=== PATIENT | female | born 1930 | race Caucasian/White ===

== ENCOUNTER 2016-10-23 19:23 | Inpatient (IN) | payer MEDICARE ==
[~2016-10-23] VITALS: Ht 160 cm; Wt 75.0 kg
[~2016-10-23 19:23] MED LIST: CALC600T44 PO; LISI10TA PO; LOVA1TAB47 PO
[2016-10-23 19:25] VITALS: BP 211/86; PULSE 104; RESP 16; TEMP 98.7; O2SAT 98
--- NOTE | 2016-10-23 20:24 | PD ---
HPI Chief Complaint: Abdominal Pain Time Seen by Provider: 20:24 Travel History International Travel<30 days: No Contact w/Intl Traveler<30days: No Traveled to known affect area: No History of Present Illness HPI 86-year-old female presents the emergency department with sudden onset upper abdominal discomfort approximately 2 PM this afternoon. Patient states a history of diverticulitis as well as gallstones, with removal of her gallstone the past, years ago, but then she had a secondary stone in the biliary tract afterwards. This was some years ago as well. Patient states she ate lunch approximately 12:00 this afternoon and then her pain started to. She describes it as a sharp crampy pain is waxing and waning, but describes it as an 8 out of 10. She states no fever or chills but has nausea without vomiting. She denies urinary symptoms or diarrhea. No history of constipation in recent days. She denies chest pain or shortness of breath. No pain in the neck or back. She is allergic to penicillin and sulfa. PFSH Past Medical History Hx Anticoagulant Therapy: No Arthritis: Yes Asthma: No Blood Disorders: No Heart Rhythm Problems: No Cancer: No Cardiovascular Problems: No High Cholesterol: Yes Chemotherapy: No Chest Pain: No Congestive Heart Failure: No COPD: No Cerebrovascular Accident: No Diabetes: Yes ([place]) Diminished Hearing: Yes ([place]) Endocrine: Yes GERD: No Glaucoma: No Genitourinary: No Hypertension: Yes Immune Disorder: No Musculoskeletal: Yes (OSTEOPOROSIS) Neurologic: Yes Psychiatric: No Reproductive: No Respiratory: No Myocardial Infarction: No Seizures: No Sleep Apnea: No Ulcer: No Menopausal: Yes Past Surgical History Abdominal Surgery: Yes (CHOLECYSTECTOMY) AICD: No Arteriovenous Shunt: No Cardiac Surgery: No Cholecystectomy: Yes Ear Surgery: No Endocrine Surgery: No Eye Surgery: No Genitourinary Surgery: No Gynecologic Surgery: No Hysterectomy: No Insulin Pump: No Joint Replacement: Yes (RTH) Oral Surgery: No Pacemaker: No Thoracic Surgery: No Social History Alcohol Use: Yes (1-2 MO) Tobacco Use: No Substance Use: No Allergies-Medications (Allergen,Severity, Reaction): Coded Allergies: Penicillin (Verified Allergy, Severe, Hives, 10/23/16) Sulfa (Verified Allergy, Severe, Hives, 10/23/16) Reported Meds & Prescriptions Reported Meds & Active Scripts Active Reported Calcium (Calcium Carbonate) 600 Mg Tab 600 Mg PO DAILY Lovastatin 20 Mg Tab 20 Mg PO Lisinopril/Hctz 20 mg/12.5 mg 20 mg/12.5 mg Tab 1 Tab PO DAILY Review of Systems Except as stated in HPI: all other systems reviewed are Neg General / Constitutional: No: Fever Eyes: No: Visual changes HENT: No: Headaches Cardiovascular: No: Chest Pain or Discomfort Respiratory: No: Shortness of Breath Gastrointestinal: Positive: Nausea, Abdominal Pain, Loss of Appetite, No: Vomiting, Diarrhea, Hematemesis, Hematochezia, Constipation, Dysphagia Genitourinary: No: Urgency, Frequency, Dysuria Musculoskeletal: No: Pain Skin: No Rash Neurologic: No: Weakness Psychiatric: No: Depression Endocrine: No: Polydipsia Hematologic/Lymphatic: No: Easy Bruising Physical Exam Narrative GENERAL: Patient appears in mild distress. SKIN: Warm and dry. Normal color. Normal turgor. No icterus. HEAD: Atraumatic. Normocephalic. EYES: Pupils equal and round. No scleral icterus. No injection or drainage. ENT: No nasal bleeding or discharge. Mucous membranes pink and moist. Pharynx is clear. Airway is patent. NECK: Trachea midline. Supple and nontender. CARDIOVASCULAR: Regular rate and rhythm. No murmurs gallops or rubs appreciated. RESPIRATORY: No accessory muscle use. Clear to auscultation. Breath sounds equal bilaterally. GASTROINTESTINAL: Abdomen soft, moderate central epigastric tenderness, nondistended. No point tenderness or rebound. No CVA tenderness. Hepatic and splenic margins not palpable. MUSCULOSKELETAL: Extremities without clubbing, cyanosis, or edema. No obvious deformities. NEUROLOGICAL: Awake and alert. No obvious cranial nerve deficits. Motor grossly within normal limits. Five out of 5 muscle strength in the arms and legs. Normal speech. PSYCHIATRIC: Appropriate mood and affect; insight and judgment normal. Data Data Last Documented VS Vital Signs Date Time Temp Pulse Resp B/P Pulse Ox O2 Delivery O2 Flow Rate FiO2 10/23/16 22:24 112 20 182/74 95 Nasal Cannula 10/23/16 21:59 2 10/23/16 19:25 98.7 Orders Complete Blood Count With Diff (10/23/16 20:32) Comprehensive Metabolic Panel (10/23/16 20:32) Lipase (10/23/16 20:32) Lactic Acid (10/23/16 20:32) Prothrombin Time / Inr (Pt) (10/23/16 20:32) Act Partial Throm Time (Ptt) (10/23/16 20:32) Urinalysis - C+S If Indicated (10/23/16 20:32) Ct Abd/Pel W Iv Contrast(Rout) (10/23/16 20:32) Iv Access Insert/Monitor (10/23/16 20:32) Ecg Monitoring (10/23/16 20:32) Oximetry (10/23/16 20:32) NPO (10/23/16 20:32) Morphine Inj (Morphine Inj) (10/23/16 20:45) Ondansetron Inj (Zofran Inj) (10/23/16 20:45) Sodium Chloride 0.9% Flush (Ns Flush) (10/23/16 20:45) Electrocardiogram (10/23/16 20:32) Al-Mag Hy-Si 40-40-4 Mg/Ml Liq (Mag-Al P (10/23/16 20:45) Lidocaine 2% Viscous (Xylocaine 2% Visco (10/23/16 20:45) Chest, Single Ap (10/23/16 20:35) Vancomycin Inj (Vancomycin Inj) (10/23/16 22:40) Aztreonam Inj (Azactam Inj) (10/23/16 22:40) Metronidazole 500 Mg Inj (Flagyl 500 Mg (10/23/16 22:40) Sodium Chlorid 0.9% 500 Ml Inj (Ns 500 M (10/23/16 22:45) Labs Laboratory Tests Test 10/23/16 21:20 White Blood Count 15.7 TH/MM3 Red Blood Count 4.68 MIL/MM3 Hemoglobin 13.9 GM/DL Hematocrit 41.4 % Mean Corpuscular Volume 88.5 FL Mean Corpuscular Hemoglobin 29.8 PG Mean Corpuscular Hemoglobin 33.7 % Concent Red Cell Distribution Width 13.2 % Platelet Count 256 TH/MM3 Mean Platelet Volume 9.4 FL Neutrophils (%) (Auto) 87.4 % Lymphocytes (%) (Auto) 6.1 % Monocytes (%) (Auto) 6.1 % Eosinophils (%) (Auto) 0.3 % Basophils (%) (Auto) 0.1 % Neutrophils # (Auto) 13.8 TH/MM3 Lymphocytes # (Auto) 1.0 TH/MM3 Monocytes # (Auto) 1.0 TH/MM3 Eosinophils # (Auto) 0.0 TH/MM3 Basophils # (Auto) 0.0 TH/MM3 CBC Comment DIFF FINAL Differential Comment Prothrombin Time 10.6 SEC Prothromb Time International 1.0 RATIO Ratio Activated Partial 23.2 SEC Thromboplast Time Sodium Level 135 MEQ/L Potassium Level 4.1 MEQ/L Chloride Level 99 MEQ/L Carbon Dioxide Level 26.2 MEQ/L Anion Gap 10 MEQ/L Blood Urea Nitrogen 20 MG/DL Creatinine 1.12 MG/DL Estimat Glomerular Filtration 46 ML/MIN Rate Random Glucose 163 MG/DL Lactic Acid Level 3.0 mmol/L Calcium Level 9.8 MG/DL Total Bilirubin 2.8 MG/DL Aspartate Amino Transf 346 U/L (AST/SGOT) Alanine Aminotransferase 278 U/L (ALT/SGPT) Alkaline Phosphatase 108 U/L Total Protein 7.1 GM/DL Albumin 3.5 GM/DL Lipase 276 U/L [facility] Medical Decision Making Medical Screen Exam Complete: Yes Emergency Medical Condition: Yes Medical Record Reviewed: Yes Differential Diagnosis Abdominal pain. Diverticulitis. Biliary disease. Gastroenteritis. Ulcer. Urinary tract infection. Narrative Course Patient is medically stable at time of exam. Labs ordered including CBC, CMP, PT PTT and INR, lactic acid, lipase, urinalysis. EKG is ordered as well as abdominal CT scan with IV contrast. IV access is obtained patient is given 4 mg Zofran IV as well as 4 mg morphine IV, as well as GI cocktail by mouth. CBC shows leukocytosis of 15.7, 87.4% neutrophils Chemistry shows sodium 135, BUN of 20, creatinine 1.12, random glucose of 163, lactic acid is significantly elevated at 3.0, total bilirubin is 2.8, AST is 346 , ALT is 278, lipase is 276 Coag studies are unremarkable. Patient is discussed with Dr. Kennedy, and antibiotics ordered including 2000 mg Aztreonam IV, metronidazole 500 mg IV, vancomycin thousand milligrams IV. Patient appears stable at [address] scan is still pending. Urinalysis is pending. 2300 hrs. care of the patient is turned over to Dr. Kennedy will determine her plan and disposition based on the CT. Condition: Stable Drew Rivas Oct 23, 2016 20:24 Condition: Stable Drew Rivas Oct 23, 2016 20:24
[2016-10-23] MEDS ORDERED: SODIUM CHLORIDE 0.9% FLUSH 10 ML FLUSH IV FLUSH PRN (20:45)
[2016-10-23] MEDS ORDERED: ONDANSETRON HCL 4 MG/2 ML VIAL IVP ONE (20:45)
[2016-10-23] MEDS ORDERED: MORPHINE SULFATE 4 MG/ML INJ IV PUSH ONE (20:45)
[2016-10-23] MEDS ORDERED: ALUMINUM/MAGNESIUM/SIMETH 30 ML CUP PO ONE (20:45)
[2016-10-23] MEDS ORDERED: LIDOCAINE VISCOUS 2% SOLN 15 ML UDC PO ONE (20:45)
--- NOTE | 2016-10-23 21:41 | RADRPT ---
EXAM DATE/TIME: 10/23/2016 21:09 [facility] COMPARISON: No previous studies available for comparison. INDICATIONS : Bilateral upper abdomen pain and lower chest pain. MEDICAL HISTORY : Hypertension. Diabetes mellitus type II. SURGICAL HISTORY : Cholecystectomy. ENCOUNTER: Initial ACUITY: 1 day PAIN SCORE: 7/10 LOCATION: Bilateral upper chest FINDINGS: A single view of the chest demonstrates the lungs to be symmetrically aerated without evidence of mas s, infiltrate or effusion. The cardiomediastinal contours are unremarkable. Osseous structures are intact. CONCLUSION: No evidence of acute cardiopulmonary disease. Wali Brown MD on October 23, 2016 at 21:39 Board Certified Radiologist. This report was verified electronically.
[2016-10-23 21:59] VITALS: BP 167/70; PULSE 113; RESP 20; O2SAT 94
[2016-10-23 21:59] LABS: AUTOMATED NEUTROPHIL # 13.8 TH/MM3 (1.8-7.7); BASOPHIL % 0.1 % (0.0-2.0); EOSINOPHIL % 0.3 % (0.0-4.0); HEMATOCRIT 41.4 % (35.0-46.0); HEMO FLAGS DIFF FINAL; LYMPH % 6.1 % (9.0-44.0); MEAN CELL VOLUME 88.5 FL (80.0-100.0); MEAN CORPUSCULAR HEMOGLOBIN 29.8 PG (27.0-34.0); MEAN CORPUSCULAR HGB CONC 33.7 % (32.0-36.0); MONO % 6.1 % (0.0-8.0); NEUT % 87.4 % (16.0-70.0); PLATELET COUNT 256 TH/MM3 (150-450); RED BLOOD COUNT 4.68 MIL/MM3 (4.00-5.30); RED CELL DISTRIBUTION WIDTH 13.2 % (11.6-17.2); WHITE BLOOD COUNT 15.7 TH/MM3 (4.0-11.0)
[2016-10-23 22:13] LABS: APTT (PATIENT) 23.2 SEC (24.3-30.1); PROTHROMBIN TIME - PATIENT 10.6 SEC (9.8-11.6)
[2016-10-23 22:15] LABS: ALT (GPT) 278 U/L (10-53)
[2016-10-23 22:16] LABS: ALKALINE PHOSPHATASE 108 U/L (45-117); TOTAL BILIRUBIN ADULT 2.8 MG/DL (0.2-1.0)
[2016-10-23 22:22] LABS: ANION GAP 10 MEQ/L (5-15); AST (GOT) 346 U/L (15-37); BICARBONATE 26.2 MEQ/L (21.0-32.0); BLOOD UREA NITROGEN 20 MG/DL (7-18); CHLORIDE 99 MEQ/L (98-107); GLOMERULAR FILTRATION RATE 46 ML/MIN (>89); POTASSIUM 4.1 MEQ/L (3.5-5.1); SODIUM (NA) 135 MEQ/L (136-145)
[2016-10-23 22:24] VITALS: BP 182/74; PULSE 112; RESP 20; O2SAT 95
[2016-10-23] MEDS ORDERED: metroNIDAZOLE 500 MG INJ 100 ML IV STA (22:40)
[2016-10-23] MEDS ORDERED: VANCOMYCIN INJ 1,000 MG in SODIUM CHLOR 0.9% 250 ML INJ 250 ML IV STA (22:40)
[2016-10-23] MEDS ORDERED: AZTREONAM INJ 2,000 MG in SODIUM CHLORIDE 0.9% INJ 100 ML IV STA (22:40)
[2016-10-23] MEDS ORDERED: SODIUM CHLORID 0.9% 500 ML INJ 500 ML IV ONE (22:45)
[2016-10-23] MEDS ORDERED: IRON PO (23:07)
[2016-10-23] MEDS ORDERED: CALCIUM PO (23:07)
[2016-10-23] MEDS ORDERED: METO25TA3 PO (23:07)
[2016-10-23] MEDS ORDERED: WOMETAB2 PO (23:07)
[2016-10-23] MEDS ORDERED: METF500T PO (23:09)
[2016-10-23] MEDS ORDERED: LOVA20TA PO (23:09)
[2016-10-23] MEDS ORDERED: LISI-587 PO (23:09)
--- NOTE | 2016-10-23 23:37 | PD ---
Data Data Last Documented VS Vital Signs Date Time Temp Pulse Resp B/P Pulse Ox O2 Delivery O2 Flow Rate FiO2 10/24/16 00:38 20 10/23/16 22:24 112 182/74 95 Nasal Cannula 10/23/16 21:59 2 10/23/16 19:25 98.7 Orders Complete Blood Count With Diff (10/23/16 20:32) Comprehensive Metabolic Panel (10/23/16 20:32) Lipase (10/23/16 20:32) Lactic Acid (10/23/16 20:32) Prothrombin Time / Inr (Pt) (10/23/16 20:32) Act Partial Throm Time (Ptt) (10/23/16 20:32) Urinalysis - C+S If Indicated (10/23/16 20:32) Ct Abd/Pel W Iv Contrast(Rout) (10/23/16 20:32) Iv Access Insert/Monitor (10/23/16 20:32) Ecg Monitoring (10/23/16 20:32) Oximetry (10/23/16 20:32) NPO (10/23/16 20:32) Morphine Inj (Morphine Inj) (10/23/16 20:45) Ondansetron Inj (Zofran Inj) (10/23/16 20:45) Sodium Chloride 0.9% Flush (Ns Flush) (10/23/16 20:45) Electrocardiogram (10/23/16 20:32) Al-Mag Hy-Si 40-40-4 Mg/Ml Liq (Mag-Al P (10/23/16 20:45) Lidocaine 2% Viscous (Xylocaine 2% Visco (10/23/16 20:45) Chest, Single Ap (10/23/16 20:35) Vancomycin Inj (Vancomycin Inj) (10/23/16 22:40) Aztreonam Inj (Azactam Inj) (10/23/16 22:40) Metronidazole 500 Mg Inj (Flagyl 500 Mg (10/23/16 22:40) Sodium Chlorid 0.9% 500 Ml Inj (Ns 500 M (10/23/16 22:45) Blood Culture (10/23/16 22:50) Lactic Acid Sepsis Protocol (10/23/16 22:50) Iohexol 350 Inj (Omnipaque 350 Inj) (10/23/16 23:49) Admit Order (Ed Use Only) (10/24/16 00:46) Consult Gastroenterology (10/24/16 ) Labs Laboratory Tests Test 10/23/16 10/23/16 21:20 23:35 White Blood Count 15.7 TH/MM3 Red Blood Count 4.68 MIL/MM3 Hemoglobin 13.9 GM/DL Hematocrit 41.4 % Mean Corpuscular Volume 88.5 FL Mean Corpuscular Hemoglobin 29.8 PG Mean Corpuscular Hemoglobin 33.7 % Concent Red Cell Distribution Width 13.2 % Platelet Count 256 TH/MM3 Mean Platelet Volume 9.4 FL Neutrophils (%) (Auto) 87.4 % Lymphocytes (%) (Auto) 6.1 % Monocytes (%) (Auto) 6.1 % Eosinophils (%) (Auto) 0.3 % Basophils (%) (Auto) 0.1 % Neutrophils # (Auto) 13.8 TH/MM3 Lymphocytes # (Auto) 1.0 TH/MM3 Monocytes # (Auto) 1.0 TH/MM3 Eosinophils # (Auto) 0.0 TH/MM3 Basophils # (Auto) 0.0 TH/MM3 CBC Comment DIFF FINAL Differential Comment Prothrombin Time 10.6 SEC Prothromb Time International 1.0 RATIO Ratio Activated Partial 23.2 SEC Thromboplast Time Sodium Level 135 MEQ/L Potassium Level 4.1 MEQ/L Chloride Level 99 MEQ/L Carbon Dioxide Level 26.2 MEQ/L Anion Gap 10 MEQ/L Blood Urea Nitrogen 20 MG/DL Creatinine 1.12 MG/DL Estimat Glomerular Filtration 46 ML/MIN Rate Random Glucose 163 MG/DL Lactic Acid Level 3.0 mmol/L 2.2 mmol/L Calcium Level 9.8 MG/DL Total Bilirubin 2.8 MG/DL Aspartate Amino Transf 346 U/L (AST/SGOT) Alanine Aminotransferase 278 U/L (ALT/SGPT) Alkaline Phosphatase 108 U/L Total Protein 7.1 GM/DL Albumin 3.5 GM/DL Lipase 276 U/L [facility] Medical Record Reviewed: Yes Supervised Visit with MAULIK: No Interpretation(s) Last Impressions Chest X-Ray 10/23/[id number] Signed Impressions: Service Date/Time: Sunday, October 23, 2016 21:09 - CONCLUSION: No evidence of acute cardiopulmonary disease. Wali Brown MD Abdomen/Pelvis CT 10/23/[id number] Signed Impressions: Service Date/Time: Sunday, October 23, 2016 23:44 - CONCLUSION: The extra hepatic biliary tree is dilated status post cholecystectomy but there is very significant debris within the common bile duct worse than in May 2015. Kwesi Reyna MD Narrative Course During the course of the patients emergency department visit, the patients history, examination, and differential diagnosis were reviewed with the patient. The patient had IV access obtained and blood work sent for analysis. The patient's case was checked out to me by Drew, the physician clinical trials assistant. The patient is pending CT scan of the abdomen and pelvis results. Rechecked the case out to me at the conclusion of his shift. The patient is an 86-year- old female who presents to [facility] emergency department with a reported history of abdominal pain with nausea. The patient has a history of choledocholithiasis status post cholecystectomy. The patient was initially provided morphine for pain, Zofran for nausea. After the patient's white blood cell count came back elevated as well as her lactic acid was elevated the patient was covered with broad-spectrum antibiotic for possible sepsis of abdominal origin. The patient was given Azactam, Flagyl, vancomycin. The patient was started on gentle fluid resuscitation with normal saline a 500 mL bolus. The patient's lactate will be repeated. The patients laboratory studies were reviewed and remarkable for a CMP is remarkable for a sodium of 135, BUN 20, creatinine 1.12, glucose 163 with a total bilirubin of 2.8, AST 346, ALT 278, normal alkaline phosphatase at 108, lipase 276. Lactic acid level is elevated at 3. PT 10.6, INR 1.0, PTT 23.2. Radiology studies were reviewed and remarkable for a chest x-ray that shows no acute abnormality. CT scan of the abdomen and pelvis showed the extrahepatic biliary tree is dilated status post cholecystectomy but there is very significant debris within the common bile duct that is much worse compared to May 2015. The patient's case was discussed with the GI specialist salesperson surgical appliances, Dr. Tafoya, who did agree to see the patient in consultation. The patients results were discussed with the patient, including the plan of care. I explained that further testing and/ or monitoring is indicated based on the patients history, examination, and/ or laboratory findings. Therefore, I recommended admission for additional evaluation. The patient expressed understanding and was agreeable with this plan. The patient was admitted to the hospital in stable condition and sent to a bed under the care of the [facility] hospitalist group. Physician Communication Physician Communication I spoke to Dr. Tafoya, the frozen food department manager, at approximately 12:44 AM. He did agree to see the patient in consultation. The [facility] who did agree to admit the patient for further evaluation and treatment at this time. Diagnosis Primary Impression: Abdominal pain Qualified Code: R10.13 - Epigastric pain Additional Impressions: Elevated liver enzymes Choledocholithiasis Admitting Information Admitting Physician Requests: Admit Condition: Stable Audrey Kennedy MD Oct 23, 2016 23:37
[2016-10-23] MEDS ORDERED: IOHEXOL 350 MG/ML 10 ML VIAL (for RAD DIAG) IV ONE (23:49)
[2016-10-24] VITALS (9 sets, daily range): BP systolic 112–157; BP diastolic 54–68; PULSE 83–109; RESP 16–20; TEMP 97.2–98.6; O2SAT 90–99
--- NOTE | 2016-10-24 00:11 | RADRPT ---
EXAM DATE/TIME: 10/23/2016 23:44 [facility] COMPARISON: No previous studies available for comparison. INDICATIONS : Upper left quadrant abdominal pain. IV CONTRAST: 80 cc Omnipaque 350 (iohexol) IV ORAL CONTRAST: No oral contrast ingested. RADIATION DOSE: 15.13 CTDIvol (mGy) MEDICAL HISTORY : Hypertension. Diabetes mellitus type 2. Diverticulitis. SURGICAL HISTORY : Cholecystectomy. Right hip replacement. ENCOUNTER: Initial ACUITY: 1 day PAIN SCALE: 8/10 LOCATION: Left upper quadrant TECHNIQUE: Volumetric scanning of the abdomen and pelvis was performed. Using automated exposure control and ad justment of the mA and/or kV according to patient size, radiation dose was kept as low as reasonably achievable to obtain optimal diagnostic quality images. FINDINGS: LOWER LUNGS: The visualized lower lungs are clear. LIVER: Homogeneous density without lesion. There is moderate dilation of the biliary tree with extensive de bris in the distal common bile duct. Cholecystectomy clips. SPLEEN: Normal size without lesion. PANCREAS: Within normal limits. KIDNEYS: Normal in size and shape. There is no mass, stone or hydronephrosis. ADRENAL GLANDS: Within normal limits. VASCULAR: There is no aortic aneurysm. BOWEL/MESENTERY: The stomach, small bowel, and colon demonstrate no acute abnormality. There is no free intraperitone al air or fluid. Diverticulosis ABDOMINAL WALL: Within normal limits. RETROPERITONEUM: There is no lymphadenopathy. BLADDER: No wall thickening or mass. REPRODUCTIVE: Within normal limits. INGUINAL: There is no lymphadenopathy or hernia. MUSCULOSKELETAL: Within normal limits for patient age. CONCLUSION: The extra hepatic biliary tree is dilated status post cholecystectomy but there is very significant d ebris within the common bile duct worse than in May 2015. Kwesi Reyna MD on October 24, 2016 at 0:08 Board Certified Radiologist. This report was verified electronically.
[2016-10-24] MEDS: D5-1/2 NS + KCL 20 MEQ INJ 1,000 ML IV SCH ×2 (00:48→14:08)
[2016-10-24] MEDS ORDERED: SODIUM CHLORIDE 0.9% FLUSH 10 ML FLUSH IV FLUSH PRN (01:00)
[2016-10-24] MEDS ORDERED: ONDANSETRON HCL 4 MG/2 ML VIAL IVP PRN (01:00)
[2016-10-24] MEDS ORDERED: NALOXONE HCL 0.4 MG/ML AMP IV PRN (01:00)
[2016-10-24 01:43] LABS: LACTIC ACID GHOST NOT REPORTABLE
[2016-10-24 04:29] LABS: BLOOD, URINE NEG (NEG); COMMENT (UR) CULT NOT INDICATED; CULTURE IF INDICATED CULT NOT INDICATED; GLUCOSE,URINE NEG (NEG); HYALINE CAST, URINE 3 /lpf (RARE); KETONE, URINE NEG (NEG); MUCUS URINE FEW /lpf (OCC); NITRITE,URINE NEG (NEG); PH, URINE 6.5 (5.0-8.5); SQUAMOUS EPITHELIAL CELL URINE 2 /hpf (0-5); URINE COLOR YELLOW (YELLW/STRAW)
[2016-10-24] MEDS: metroNIDAZOLE 500 MG INJ 100 ML IV SCH ×3 (08:26→23:42)
[2016-10-24] MEDS: AZTREONAM INJ 1,000 MG in SODIUM CHLORIDE 0.9% INJ 100 ML IV SCH ×3 (08:26→23:41)
[2016-10-24] MEDS: SODIUM CHLORIDE 0.9% FLUSH 10 ML FLUSH IV FLUSH SCH ×2 (08:27→20:03)
[2016-10-24] MEDS: HEPARIN SODIUM - SQ 10,000 UNITS/ML VIAL SQ SCH ×2 (08:27→08:34)
--- NOTE | 2016-10-24 09:48 | HHI.HP ---
[facility] Jc Ridley MD Admission Diagnosis Choledocholithiaisis Diagnoses: Chief Complaint: Abdominal pain Travel History International Travel<30 Days: No Contact w/Intl Traveler <30 Da: No Traveled to Known Affected Are: No History of Present Illness This a pleasant 86-year-old elderly white female with significant past medical history of cholecystectomy in 2010, type 2 diabetes, hypertension. Patient presented to the emergency room with sudden onset of abdominal pain that started around 2 PM yesterday. Indicates the pain is cramping in nature, it is across the top of the abdomen, it comes and goes. Associated with nausea, no vomiting. 2 hours before she had had lunch, 1/2 an apple and half turkey & salami sandwich. Patient has a history of choledocholithiasis that required ERCP and stone removal in 2016. She denies any fever, no chills. No urinary symptoms. Bowel movements have been regular, no blood. No other symptoms such as chest pain, shortness of breath. Patient was evaluated in emergency room, CBC remarkable for leukocytosis, WBC 15.7. Lactic acid was elevated at 3, it is trending down. BMP remarkable for BUN of 20, creatinine 1.12. Elevated liver enzymes, AST 346, ALT 278. Mild hyponatremia, sodium 135. Urinalysis with small amount of leukocyte esterase, no culture indicated. Abdomen and pelvis CT significant for extrahepatic biliary tree dilation status post cholecystectomy, there is significant degree within the common bile duct worse than in May 2015. Patient was noted tachycardic, blood pressure stable. No fever. Cultures were obtained, patient was started on empiric antibiotics. Patient is currently nothing by mouth and waiting for GI consultation. Patient is admitted for further evaluation and treatment Review of Systems Constitutional: DENIES: Diaphoretic episodes, Fatigue, Fever, Weight gain, Weight loss, Chills, Dizziness, Change in appetite, Night Sweats Endocrine: DENIES: Abnorml menstrual pattern, Heat/cold intolerance, Polydipsia , Polyuria, Polyphagia Eyes: DENIES: Blurred vision, Diplopia, Eye inflammation, Eye pain, Vision loss , Photosensitivity, Double Vision Ears, nose, mouth, throat: DENIES: Tinnitus, Hearing loss, Vertigo, Nasal discharge, Oral lesions, Throat pain, Hoarseness, Ear Pain, Running Nose, Epistaxis, Sinus Pain, Toothache, Odynophagia Respiratory: DENIES: Apneas, Cough, Snoring, Wheezing, Hemoptysis, Sputum production, Shortness of breath Cardiovascular: DENIES: Chest pain, Palpitations, Syncope, Dyspnea on Exertion , PND, Lower Extremity Edema, Orthopnea, Claudication Gastrointestinal: COMPLAINS OF: Abdominal pain, Nausea Genitourinary: DENIES: Abnormal vaginal bleeding, Dysmenorrhea, Dyspareunia, Sexual dysfunction, Urinary frequency, Urinary incontinence, Urgency, Hematuria , Dysuria, Nocturia, Vaginal discharge Musculoskeletal: DENIES: Joint pain, Muscle aches, Stiffness, Joint Swelling, Back pain, Neck pain Integumentary: DENIES: Abnormal pigmentation, Pruritus, Rash, Nail changes, Breast masses, Breast skin changes, Nipple discharge Hematologic/lymphatic: DENIES: Bruising, Lymphadenopathy Immunologic/allergic: DENIES: Eczema, Urticaria Neurologic: DENIES: Abnormal gait, Headache, Localized weakness, Paresthesias, Seizures, Speech Problems, Tremor, Poor Balance Psychiatric: DENIES: Anxiety, Confusion, Mood changes, Depression, Hallucinations, Agitation, Suicidal Ideation, Homicidal Ideation, Delusions Past Family Social History Past Medical History 1. Hypertension 2. Diabetes 3. Arthritis 4. Hyperlipidemia 5. Admitted in 2016 for choledocholithiasis, had ERCP with stone extraction. Past Surgical History 1. History of hip replacement in 2005. 2. Cholecystectomy in 2010. 3. ERCP with stone extraction and dilation of bile duct on 05/24/2015 Reported Medications Reported Meds & Active Scripts Active Reported Metformin (Metformin HCl) 500 Mg Tab 500 Mg PO BIDPC With meals Zestoretic (Lisinopril-Hctz) 20-25 Mg Tab 1 Tab PO DAILY Lovastatin 20 Mg Tab 20 Mg PO HS [Calcium 600 +Iron] 1 Tab PO DAILY Womens Daily Formula (Multiple Vitamins W/ Minerals) 1 Tab Tab 1 Tab PO AC DINNER Metoprolol Tartrate 25 Mg Tab 25 Mg PO BID Allergies: Coded Allergies: Penicillin (Verified Allergy, Severe, Hives, 10/23/16) Sulfa (Verified Allergy, Severe, Hives, 10/23/16) Active Ordered Medications Inpatient Medications Al Hydrox/Mg Hydrox/Simethicone (Mag-Al Plus Susp Liq) 30 ml ONCE ONCE PO Last administered on 10/23/16t 20:45; Start 10/23/16 at 20:45; Stop 10/23/16 at 20: 46; Status DC Aztreonam 1000 mg/ Sodium Chloride 100 ml @ 200 mls/hr Q8H IV Last administered on 10/24/16 08:26; Start 10/24/16 at 08:00 Aztreonam 2000 mg/ Sodium Chloride 100 ml @ 200 mls/hr ONCE STAT IV Last administered on 10/23/16 22:40; Start 10/23/16 at 22:40; Stop 10/23/16 at 23:09; Status DC Heparin Sodium (Porcine) (Heparin Inj) 5,000 units Q12H SQ ; Start 10/24/16 at 09 :00 Hydromorphone HCl (Dilaudid Pf Inj) 0.5 mg Q4H PRN IV PUSH pain ; Start at 01:00 Lidocaine HCl 15 ml 15 ml ONCE ONCE PO Last administered on 10/23/16 20:45; Start 10/23/16 at 20:45; Stop 10/23/16 at 20:46; Status DC Metronidazole (Flagyl 500 Mg Inj) 100 ml @ 100 mls/hr Q8H IV Last administered on 10/24/16 08:26; Start 10/24/16 at 09:00 Morphine Sulfate (Morphine Inj) 4 mg ONCE ONCE IV PUSH Last administered on 20:45; Start 10/23/16 at 20:45; Stop 10/23/16 at 20:46; Status DC Naloxone HCl 0.4 mg 0.4 mg UNSCH PRN IV SEE LABEL COMMENTS; Start 10/24/16 at 01 :00 Ondansetron HCl (Zofran Inj) 4 mg Q6H PRN IVP NAUSEA OR VOMITING; Start at 01:00 Potassium Chloride/Dextrose/ Sod Cl (D5-1/2 NS + KCl 20 Meq Inj) 1,000 ml @ 75 mls/hr [id number] IV Last administered on 10/24/16 00:48; Start 10/24/16 at 00:48 Sodium Chloride (NS Flush) 2 ml BID IV FLUSH ; Start 10/24/16 at 09:00 Vancomycin HCl 1000 mg/Sodium Chloride 250 ml @ 250 mls/hr Q12H IV ; Start 10/24 at 13:00 Family History Reviewed, noncontributory Social History Patient is a , lives with one of her daughters. Does not smoke, does not drink, no substance abuse. Physical Exam Vital Signs Vital Signs Date Time Temp Pulse Resp B/P Pulse Ox O2 Delivery O2 Flow Rate FiO2 10/24/16 08:00 97.5 98 16 125/56 96 10/24/16 07:59 Nasal Cannula 2.00 10/24/16 04:58 95 Nasal Cannula 2.00 10/24/16 04:00 98.6 104 18 117/59 99 10/24/16 03:42 106 20 117/54 96 10/24/16 01:00 102 20 154/68 96 10/24/16 00:38 20 10/23/16 22:24 112 20 182/74 95 Nasal Cannula 10/23/16 21:59 113 20 167/70 94 Nasal Cannula 2 10/23/16 20:42 20 10/23/16 19:25 98.7 104 16 211/86 98 Room Air Physical Exam GENERAL: This is a well-nourished, well-developed patient, in no apparent distress. SKIN: No rashes, ecchymoses or lesions. Cool and dry. HEAD: Atraumatic. Normocephalic. No temporal or scalp tenderness. EYES: Pupils equal round and reactive. Extraocular motions intact. No scleral icterus. No injection or drainage. ENT: Nose without bleeding, purulent drainage or septal hematoma. Throat without erythema, tonsillar hypertrophy or exudate. Uvula midline. Airway patent. NECK: Trachea midline. No JVD or lymphadenopathy. Supple, nontender, no meningeal signs. CARDIOVASCULAR: Regular rate and rhythm without murmurs, gallops, or rubs. RESPIRATORY: Clear to auscultation. Breath sounds equal bilaterally. No wheezes , rales, or rhonchi. GASTROINTESTINAL: Abdomen soft, tender over epigastric area, nondistended. No hepato-splenomegaly, or palpable masses. No guarding. MUSCULOSKELETAL: Extremities without clubbing, cyanosis, or edema. No joint tenderness, effusion, or edema noted. No calf tenderness. Negative Homans sign bilaterally. NEUROLOGICAL: Awake and alert. Cranial nerves II through XII intact. Motor and sensory grossly within normal limits. Five out of 5 muscle strength in all muscle groups. Normal speech. Laboratory Laboratory Tests Test 6/5/10/23/16 10/24/16 10/24/16 21:20 23:35 03:10 04:00 White Blood Count 15.7 Red Blood Count 4.68 Hemoglobin 13.9 Hematocrit 41.4 Mean Corpuscular Volume 88.5 Mean Corpuscular Hemoglobin 29.8 Mean Corpuscular Hemoglobin 33.7 Concent Red Cell Distribution Width 13.2 Platelet Count 256 Mean Platelet Volume 9.4 Neutrophils (%) (Auto) 87.4 Lymphocytes (%) (Auto) 6.1 Monocytes (%) (Auto) 6.1 Eosinophils (%) (Auto) 0.3 Basophils (%) (Auto) 0.1 Neutrophils # (Auto) 13.8 Lymphocytes # (Auto) 1.0 Monocytes # (Auto) 1.0 Eosinophils # (Auto) 0.0 Basophils # (Auto) 0.0 CBC Comment DIFF FINAL Differential Comment Prothrombin Time 10.6 Prothromb Time International 1.0 Ratio Activated Partial 23.2 Thromboplast Time Sodium Level 135 Potassium Level 4.1 Chloride Level 99 Carbon Dioxide Level 26.2 Anion Gap 10 Blood Urea Nitrogen 20 Creatinine 1.12 Estimat Glomerular Filtration 46 Rate Random Glucose 163 Lactic Acid Level 3.0 2.2 2.5 Calcium Level 9.8 Total Bilirubin 2.8 Aspartate Amino Transf 346 (AST/SGOT) Alanine Aminotransferase 278 (ALT/SGPT) Alkaline Phosphatase 108 Total Protein 7.1 Albumin 3.5 Lipase 276 Urine Color YELLOW Urine Turbidity CLEAR Urine pH 6.5 Urine Specific [place] GREATER THAN 1.050 Urine Protein TRACE Urine Glucose (UA) NEG Urine Ketones NEG Urine Occult Blood NEG Urine Nitrite NEG Urine Bilirubin NEG Urine Urobilinogen 2.0 Urine Leukocyte Esterase SMALL Urine RBC 3 Urine WBC 8 Urine Squamous Epithelial 2 Cells Urine Hyaline Casts 3 Urine Mucus FEW Microscopic Urinalysis Comment CULT NOT INDICATED Date/Time Procedure Status Source Growth 10/23/16 23:55 Aerobic Blood Culture Received Blood Peripheral Pending 10/23/16 23:55 Anaerobic Blood Culture Received Blood Peripheral Pending Result Diagram: 10/23/16211910/23/162119 Imaging Last Impressions Chest X-Ray 10/23/162034 Signed Impressions: Service Date/Time: Sunday, October 23, 2016 21:09 - CONCLUSION: No evidence of acute cardiopulmonary disease. Wali Brown MD Abdomen/Pelvis CT 10/23/162031 Signed Impressions: Service Date/Time: Sunday, October 23, 2016 23:44 - CONCLUSION: The extra hepatic biliary tree is dilated status post cholecystectomy but there is very significant debris within the common bile duct worse than in May 2015. Kwesi Reyna MD Assessment and Plan Problem List: (1) Abdominal pain (2) Choledocholithiasis (3) DM (diabetes mellitus) (4) Leukocytosis (5) Hyperlipidemia (6) Elevated liver enzymes (7) Lactic acid acidosis (8) JAIRO (acute kidney injury) Assessment and Plan Admit to Dr. Niño 86-year-old elderly female with history of cholecystectomy in 2010 and choledocholithiasis with ERCP and stone extraction in 2016. Admitted with cramping abdominal pain associated with nausea. Has elevated liver enzymes. 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 Positive for leukocytosis and lactic acidosis, SIRS. -Keep nothing by mouth Continue with cautious hydration Gastroenterology has been consulted. -Continue with empiric antibiotics, follow cultures Follow CBC and lactic acid -Follow LFTs in the morning Acute kidney injury Continue with IV fluids Follow BMP Type 2 diabetes Accu-Cheks before meals and at bedtime with insulin therapy Hypertension, stable Continue home medications SCDs and heparin subcutaneous for DVT prophylaxis Repeat laboratory workup in the morning Plan of care discussed with the patient, attending and registered nurse. Further management of the patient will be dependent on hospital course Patient was seen by myself and Dr. Niño, this H&P is written on her behalf Physician Certification 2 Midnight Certification Type: Admission for Inpatient Services Order for Inpatient Services The services are ordered in accordance with Medicare regulations or non- Medicare payer requirements, as applicable. In the case of services not specified as inpatient-only, they are appropriately provided as inpatient services in accordance with the 2-midnight benchmark. Estimated LOS (days): 2 2 days is the estimated time the patient will need to remain in the hospital, assuming treatment plan goals are met and no additional complications. Post-Hospital Plan: Home Problem Qualifiers (1) Abdominal pain: Qualified Code: R10.13 - Epigastric pain (2) DM (diabetes mellitus): Qualified Code: E11.9 - Type 2 diabetes mellitus without complication, without long-term current use of insulin (3) Leukocytosis: Qualified Code: D72.829 - Leukocytosis, unspecified type (4) Hyperlipidemia: Qualified Code: E78.5 - Hyperlipidemia, unspecified hyperlipidemia type Kimberlyn Benitez Oct 24, 2016 09:48
[2016-10-24] MEDS ORDERED: GLUCAGON 1 MG/ML VIAL OTHER PRN (10:00)
[2016-10-24] MEDS ORDERED: DEXTROSE 50% IN WATER 50 ML VIAL(D50) IV PRN (10:00)
[2016-10-24] MEDS: INSULIN ASPART SUPPLEMENTAL SCALE SQ SCH ×3 (11:00→21:00)
[2016-10-24] MEDS: VANCOMYCIN INJ 1,000 MG in SODIUM CHLOR 0.9% 250 ML INJ 250 ML IV SCH ×2 (11:32→23:43)
--- NOTE | 2016-10-24 15:20 | PD.CONS ---
HPI History of Present Illness This is a 86 year old lady who presended to the ER last night for "stomach pains " and nausea. Onset was yesterday, mid epigastric pain that became diffuse. No aggravating or relieving factors. She has experienced this before, 05/2015 and was found to have choledocholithiasis and had ERCP and stone extraction. Says her urine has been dark the last few days. Denies jaundice, vomiting, diarrhea. Denies ETOH. (Vida Guy) PFSH Past Medical History HTN DMII hx choledocholithiasis (Vida Guy) Coded Allergies: Penicillin (Verified Allergy, Severe, Hives, 10/23/16) Sulfa (Verified Allergy, Severe, Hives, 10/23/16) Review of Systems Constitutional: DENIES: Fever Eyes: DENIES: Blurred vision Ears, nose, mouth, throat: DENIES: Hearing loss Respiratory: DENIES: Cough Cardiovascular: DENIES: Chest pain Gastrointestinal: COMPLAINS OF: Abdominal pain, Nausea, DENIES: Black stools, Bloody stools, Constipation, Diarrhea, Vomiting, Swelling of Abdomen Genitourinary: DENIES: Hematuria Musculoskeletal: DENIES: Muscle aches Integumentary: DENIES: Abnormal pigmentation Hematologic/lymphatic: DENIES: Bruising Neurologic: DENIES: Abnormal gait Psychiatric: DENIES: Confusion (Vida Guy) GI Exam Vitals I&O Vital Signs Date Time Temp Pulse Resp B/P Pulse Ox O2 Delivery O2 Flow Rate FiO2 10/24/16 12:00 97.8 86 16 118/57 95 10/24/16 08:00 97.5 98 16 125/56 96 10/24/16 07:59 Nasal Cannula 2.00 10/24/16 04:58 95 Nasal Cannula 2.00 10/24/16 04:00 98.6 104 18 117/59 99 10/24/16 03:42 106 20 117/54 96 10/24/16 01:00 102 20 154/68 96 10/24/16 00:38 20 10/23/16 22:24 112 20 182/74 95 Nasal Cannula 10/23/16 21:59 113 20 167/70 94 Nasal Cannula 2 10/23/16 20:42 20 10/23/16 19:25 98.7 104 16 211/86 98 Room Air I/O 10/23/16 10/23/16 10/23/16 10/24/16 10/24/16 10/24/16 07:00 15:00 23:00 07:00 15:00 23:00 Intake Total 414 ml 678 ml Balance 414 ml 678 ml Intake IV Total 414 ml 678 ml Imaging Last Impressions Chest X-Ray 10/23/162034 Signed Impressions: Service Date/Time: Sunday, October 23, 2016 21:09 - CONCLUSION: No evidence of acute cardiopulmonary disease. Wali Brown MD Abdomen/Pelvis CT 10/23/162031 Signed Impressions: Service Date/Time: Sunday, October 23, 2016 23:44 - CONCLUSION: The extra hepatic biliary tree is dilated status post cholecystectomy but there is very significant debris within the common bile duct worse than in May 2015. Kwesi Reyna MD Laboratory Test 10/23/16 10/23/16 10/24/16 10/24/16 21:20 23:35 03:10 04:00 White Blood Count 15.7 TH/MM3 Red Blood Count 4.68 MIL/MM3 Hemoglobin 13.9 GM/DL Hematocrit 41.4 % Mean Corpuscular Volume 88.5 FL Mean Corpuscular Hemoglobin 29.8 PG Mean Corpuscular Hemoglobin 33.7 % Concent Red Cell Distribution Width 13.2 % Platelet Count 256 TH/MM3 Mean Platelet Volume 9.4 FL Neutrophils (%) (Auto) 87.4 % Lymphocytes (%) (Auto) 6.1 % Monocytes (%) (Auto) 6.1 % Eosinophils (%) (Auto) 0.3 % Basophils (%) (Auto) 0.1 % Neutrophils # (Auto) 13.8 TH/MM3 Lymphocytes # (Auto) 1.0 TH/MM3 Monocytes # (Auto) 1.0 TH/MM3 Eosinophils # (Auto) 0.0 TH/MM3 Basophils # (Auto) 0.0 TH/MM3 CBC Comment DIFF FINAL Differential Comment Prothrombin Time 10.6 SEC Prothromb Time International 1.0 RATIO Ratio Activated Partial 23.2 SEC Thromboplast Time Sodium Level 135 MEQ/L Potassium Level 4.1 MEQ/L Chloride Level 99 MEQ/L Carbon Dioxide Level 26.2 MEQ/L Anion Gap 10 MEQ/L Blood Urea Nitrogen 20 MG/DL Creatinine 1.12 MG/DL Estimat Glomerular Filtration 46 ML/MIN Rate Random Glucose 163 MG/DL Lactic Acid Level 3.0 mmol/L 2.2 mmol/L 2.5 mmol/L Calcium Level 9.8 MG/DL Total Bilirubin 2.8 MG/DL Aspartate Amino Transf 346 U/L (AST/SGOT) Alanine Aminotransferase 278 U/L (ALT/SGPT) Alkaline Phosphatase 108 U/L Total Protein 7.1 GM/DL Albumin 3.5 GM/DL Lipase 276 U/L Urine Color YELLOW Urine Turbidity CLEAR Urine pH 6.5 Urine Specific [place] GREATER THAN 1.050 Urine Protein TRACE mg/dL Urine Glucose (UA) NEG mg/dL Urine Ketones NEG mg/dL Urine Occult Blood NEG Urine Nitrite NEG Urine Bilirubin NEG Urine Urobilinogen 2.0 MG/DL Urine Leukocyte Esterase SMALL Urine RBC 3 /hpf Urine WBC 8 /hpf Urine Squamous Epithelial 2 /hpf Cells Urine Hyaline Casts 3 /lpf Urine Mucus FEW /lpf Microscopic Urinalysis Comment CULT NOT INDICATED Date/Time Procedure Status Source Growth 10/23/16 23:55 Aerobic Blood Culture Received Blood Peripheral Pending 10/23/16 23:55 Anaerobic Blood Culture Received Blood Peripheral Pending Physical Examination HEENT: EOMI; normocephalic; atraumatic; no jaundice. CHEST: CTA CARDIAC: RRR ABDOMEN: Soft, obese, mild epigastric tenderness; bowel sounds are present in all four quadrants. EXTREMITIES: No clubbing, cyanosis, or edema. SKIN: Normal; no rash; no jaundice. CLINICAL TRANSPLANT COORDINATOR: No focal deficits; alert and oriented times three. (Vida Guy) Assessment and Plan Plan ASSESSMENT - epigastric pain, nausea - hx choledocholithiasis. CT 10-23-16 --> the extra hepatic biliary tree is dilated status post cholecystectomy but there is very significant debris within the common bile duct worse than in May 2015 - elevated LFTs - likely 2/2 above PLAN - ERCP tomorrow - full liquid diet for now - NPO after midnight - obtain consents - further recommendations to follow This pt seen by myself and DR Tafoya and this note is written on his behalf ( Vida Guy) Physician Comments Seen and examined, plan as above, for ERCP in AM. Risk, benefits and possible complications explained to the patient and agreed to proceed in AM. (Paolo Tafoya MD) Vida Guy Oct 24, 2016 15:19 Paolo Tafoya MD Oct 24, 2016 17:29
[2016-10-24] MEDS: METOPROLOL TARTRATE 25 MG TAB PO SCH (20:02)
--- NOTE | 2016-10-24 22:02 | EKG ---
Date Performed: 10/23/2016 Time Performed: 22:32:13 PTAGE: 86 years EKG: SINUS TACHYCARDIA INFERIOR MYOCARDIAL INFARCTION Since previous tracing, no significant miguel ángel nge noted ABNORMAL ECG PREVIOUS TRACING : 10/03/2016 06.29.33 DOCTOR: Awa Watson Interpretating Date/Time 10/24/2016 22:00:53
[2016-10-25] VITALS (8 sets, daily range): BP systolic 108–149; BP diastolic 58–71; PULSE 75–84; RESP 16–20; TEMP 96–98.1; O2SAT 88–97
[2016-10-25] MEDS: D5-1/2 NS + KCL 20 MEQ INJ 1,000 ML IV SCH ×2 (02:06→17:45)
[2016-10-25] MEDS ORDERED: SODIUM CHLORID 0.9% 500 ML IV PRN (03:45)
[2016-10-25] MEDS: INSULIN ASPART SUPPLEMENTAL SCALE SQ SCH ×4 (05:47→21:00)
[2016-10-25 06:07] LABS: AUTOMATED NEUTROPHIL # 5.7 TH/MM3 (1.8-7.7); BASOPHIL # 0.1 TH/MM3 (0-0.2); BASOPHIL % 0.8 % (0.0-2.0); EOSINOPHIL # 0.2 TH/MM3 (0-0.4); EOSINOPHIL % 1.8 % (0.0-4.0); HEMATOCRIT 35.2 % (35.0-46.0); HEMO FLAGS DIFF FINAL; LYMPH % 21.9 % (9.0-44.0); LYMPHOCYTE # 1.8 TH/MM3 (1.0-4.8); MEAN CELL VOLUME 89.3 FL (80.0-100.0); MEAN CORPUSCULAR HEMOGLOBIN 31.5 PG (27.0-34.0); MEAN CORPUSCULAR HGB CONC 35.3 % (32.0-36.0); MONO % 7.7 % (0.0-8.0); NEUT % 67.8 % (16.0-70.0); PLATELET COUNT 213 TH/MM3 (150-450); RED BLOOD COUNT 3.94 MIL/MM3 (4.00-5.30); RED CELL DISTRIBUTION WIDTH 13.8 % (11.6-17.2); WHITE BLOOD COUNT 8.4 TH/MM3 (4.0-11.0)
[2016-10-25 06:29] LABS: BICARBONATE 26.3 MEQ/L (21.0-32.0); INDIRECT BILIRUBIN 2.2 MG/DL (0.0-0.8); POTASSIUM 3.9 MEQ/L (3.5-5.1); TOTAL BILIRUBIN ADULT 5.8 MG/DL (0.2-1.0)
[2016-10-25] MEDS: metroNIDAZOLE 500 MG INJ 100 ML IV SCH ×2 (08:03→17:45)
[2016-10-25] MEDS: AZTREONAM INJ 1,000 MG in SODIUM CHLORIDE 0.9% INJ 100 ML IV SCH ×2 (08:03→14:12)
[2016-10-25] MEDS: METOPROLOL TARTRATE 25 MG TAB PO SCH ×2 (08:04→21:35)
[2016-10-25] MEDS: LISINOPRIL 20 MG TAB PO SCH (08:04)
[2016-10-25] MEDS: SODIUM CHLORIDE 0.9% FLUSH 10 ML FLUSH IV FLUSH SCH ×2 (08:04→21:00)
[2016-10-25] MEDS: HYDROCHLOROTHIAZIDE 25 MG TAB PO SCH (08:04)
[2016-10-25] MEDS: HEPARIN SODIUM - SQ 10,000 UNITS/ML VIAL SQ SCH ×2 (08:05→21:00)
[2016-10-25] MEDS ORDERED: NON-FORMULARY DRUG (Lisinopril-Hctz (Zestoretic) 1 TAB) PO SCH (09:00)
[2016-10-25] MEDS ORDERED: IOHEXOL 350 MG/ML 100 ML BTL (for RAD DIAG) OTHER ONE (10:36)
--- NOTE | 2016-10-25 13:09 | GIPROC ---
[facility] [address] [facility]. [facility], [id number] ERCP PROCEDURE REPORT EXAM DATE: 10/25/2016 PATIENT NAME: Angelina Sam MR #: [id number] BIRTHDATE: 1930 ATTENDING: Paolo Tafoya MD ORDER #: [id number] ADJUNCT PSYCHOLOGY INSTRUCTOR: Christ Warren and Fatemeh Pena STATUS: inpatient INDICATIONS: The patient is a 86 yr old female here for an ERCP due to established ascending cholangitis and established bile duct stone(s) PROCEDURE PERFORMED: ERCP with stent placement MEDICATIONS: Per Anesthesia and None. CONSENT: The patient understands the risks and benefits of the procedure and understands that these risks include, but are not limited to: sedation, allergic reaction, infection, perforation and/or bleeding. Alternative means of evaluation and treatment include, among others: physical exam, x-rays, and/or surgical intervention. The patient elects to proceed with this endoscopic procedure. medical equipment was checked for proper function. Hand hygiene and appropriate measures for infection prevention was taken. After the risks, benefits and alternatives of the procedure were thoroughly explained, Informed was verified, confirmed and timeout was successfully executed by the treatment team. With the patient in left semi-prone position, medications were administered intravenously.The Pentax [id number] was passed from the mouth into the esophagus and further advanced from the esophagus into the stomach. From stomach scope was directed to the second portion of the duodenum. Major papilla was aligned with the duodenoscope. The scope position was confirmed fluoroscopically. Rest of the findings/therapeutics are given below. The scope was then completely withdrawn from the patient and the procedure completed. The pulse, BP, and O2 saturation were monitored and documented by the physician and the nursing staff throughout the entire procedure. The patient was cared for as planned according to standard protocol. The patient was then discharged to recovery in stable condition and with appropriate post procedure care. The ampulla was located the second portion of the duodenum. There was evidence of prior sphincterotomy. A single stone was seen in the distal common bile duct. With guidewire in the bile duct, a large biliary sphincterotomy was performed using the sphincterotome. There was a dilation of the CBD, intraheptic ducts, right hepatic ducts, and common hepatic duct. Using a stone extraction balloon the bile duct was swept several times. The stone(s) could not be removed from the bile duct with this maneuver. Under endoscopic and fluoroscopic guidance a 10 Fr x 7 cm Cook Cotton-Andrew Sof-Flex stent was placed in the bile duct. ADVERSE EVENT: There were no complications. IMPRESSIONS: The ampulla revealed a prior sphincterotomy but fibrotic opening Attempted stone extraction failed despite several attempts. 10F 7CM plastic stent placed with good drainage RECOMMENDATIONS: Antibiotics REPEAT EXAM: Return 8 weeks ERCP Paolo Tafoya MD eSigned: Paolo Tafoya MD 10/25/2016 1:08 PM cc:
[2016-10-25] MEDS ORDERED: PROPOFOL 200 MG/20 ML AMP IV ONE (13:10)
--- NOTE | 2016-10-25 13:25 | HHI.PR ---
Objective Objective Results - Vital Signs Date Time Temp Pulse Resp B/P Pulse Ox O2 Delivery O2 Flow Rate FiO2 10/25/16 12:00 97.7 75 16 126/58 90 10/25/16 11:39 97.7 75 16 126/58 90 10/25/16 10:05 92 21 10/25/16 08:00 97.6 84 16 130/62 88 10/25/16 04:00 98.1 80 16 108/60 96 10/24/16 23:53 97.9 83 18 112/58 94 10/24/16 20:00 97.2 108 18 157/60 92 10/24/16 20:00 109 10/24/16 16:00 98.4 102 16 140/63 90 I/O 10/24/16 10/24/16 10/24/16 10/25/16 10/25/16 10/25/16 07:00 15:00 23:00 07:00 15:00 23:00 Intake Total 414 ml 678 ml 120 ml 1048 ml Output Total 250 ml 100 ml Balance 414 ml 428 ml 20 ml 1048 ml Intake Oral 0 ml 120 ml IV Total 414 ml 678 ml 1048 ml Output Urine Total 250 ml 100 ml # Voids 2 # Bowel Movements 0 0 (Serenity Cheung) Result Diagram: 10/25/16 0533 10/25/16 0535 Physical Exam Physical Exam PHYSICAL EXAMINATION GENERAL: This is a well-developed, well-nourished female who appears to be in no acute distress. She is alert and awake, []. HEAD: Normocephalic without any lesion or mass noted. Facial features appear symmetric. OROPHARYNGEAL: Oropharynx without erythema or edema. NECK: Supple. No nuchal rigidity or lymphadenopathy. Trachea midline without deviation. CARDIAC: Regular rhythm, regular rate, S1 and S2 are heard. Murmur []; no gallops or rubs. LUNGS: Clear to auscultation bilaterally. [] wheeze, [] rhonchi or [] rale. No use of accessory muscles on inspiration or expiration. ABDOMEN: Soft, nontender, no organomegaly or masses. Bowel sounds are heard in all four quadrants. No rebound. No guarding. EXTREMITIES: [] edema. Pulses equal bilateral. [] cyanosis. NEUROLOGICAL: Patient mood and affect appropriate. No focal deficit SKIN:Warm and moist (Serenity Cheung) A/P Assessment and Plan (1) Abdominal pain (2) Choledocholithiasis (3) DM (diabetes mellitus) (4) Leukocytosis (5) Hyperlipidemia (6) Elevated liver enzymes (7) Lactic acid acidosis (8) JAIRO (acute kidney injury) 86-year-old elderly female with history of cholecystectomy in 2011 and choledocholithiasis with ERCP and stone extraction in 2016. Admitted with cramping abdominal pain associated with nausea. Has elevated liver enzymes. 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 Positive for leukocytosis and lactic acidosis, SIRS. vitals reviewed, normal trends labs reviewed, leukocytosis resolved, 8.4 today, monitor ERCP with stenting today. Gastroenterology has been consulted. Appreciate input antibiotics, follow cultures, gio hydration Lactic acid resolved, 1.3 monitor bilirubin and other labs. Type 2 diabetes Accu-Cheks before meals and at bedtime with insulin therapy Hypertension, stable, medical management SCDs and heparin subcutaneous for DVT prophylaxis (Serenity Cheung) Assessment and Plan patient seen and examined s/p ERCP, with stent placement unsuccessful in retrieving stone LFTS improving continue broad spectrum antibiotics monitor LFts advance diet continue current care d/w patient and family at bedside discussed with nursing staff (Mercedez Niño MD) Serenity Cheung Oct 25, 2016 13:25 Mercedez Niño MD Oct 25, 2016 15:33
[2016-10-25] MEDS ORDERED: DO NOT ADM ANY ANTICOAGULANT DRUGS PRN (13:30)
[2016-10-25] MEDS: VANCOMYCIN INJ 1,000 MG in SODIUM CHLOR 0.9% 250 ML INJ 250 ML IV SCH (14:12)
[2016-10-25] MEDS: HYDROmorphone HCL PF 1 MG/ML VIAL IV PUSH PRN (14:41)
--- NOTE | 2016-10-25 14:59 | RADRPT ---
EXAM DATE/TIME: 10/25/2016 12:37 CORRECTION Corrected on: October 30, 2016; added Image Count [place] COMPARISON: GI LAB ERCP, May 24, 2015, 12:01 INDICATIONS : ERCP for obstruction, sphincterotomy, stent placement. FLUORO TIME: .33 minutes IMAGE COUNT: 2 CONTRAST: Instilled by Ordering Physician MEDICAL HISTORY : Cholelithiasis. SURGICAL HISTORY : Cholecystectomy. ENCOUNTER: Initial ACUITY: 1 day PAIN SCORE: Non-responsive. LOCATION: Abdomen FINDINGS: An ERCP was performed by the ordering physician. Two images reveal a scope with contrast opacifying the most inferior portion of the common bile duct and pancreatic duct. Small filling defects are seen within the common bile duct as well as the pancr eatic duct. The largest measures approximately 1 cm. A total of 4 filling defects observed. The large st within the common bile duct. The visualized portion of the common bile duct is dilated. Pancreatic duct is also prominent. The final image shows a Silastic stent. CONCLUSION: ERCP as above. Delfino Roberts Jr., MD on October 25, 2016 at 14:34 Board Certified Radiologist. This report was verified electronically. Board Certified Radiologist. This report was verified electronically. on October 30, 2016 at 20:12
[2016-10-26] VITALS (8 sets, daily range): BP systolic 138–184; BP diastolic 65–82; PULSE 69–82; RESP 18–20; TEMP 97–98.3; O2SAT 93–96
[2016-10-26] MEDS: metroNIDAZOLE 500 MG INJ 100 ML IV SCH ×3 (00:50→18:02)
[2016-10-26] MEDS: VANCOMYCIN INJ 1,000 MG in SODIUM CHLOR 0.9% 250 ML INJ 250 ML IV SCH ×2 (00:50→13:39)
[2016-10-26] MEDS: AZTREONAM INJ 1,000 MG in SODIUM CHLORIDE 0.9% INJ 100 ML IV SCH ×4 (00:51→23:36)
[2016-10-26] MEDS: D5-1/2 NS + KCL 20 MEQ INJ 1,000 ML IV SCH ×2 (04:35→17:00)
[2016-10-26] MEDS: INSULIN ASPART SUPPLEMENTAL SCALE SQ SCH ×4 (04:35→20:10)
[2016-10-26 05:14] LABS: AUTOMATED NEUTROPHIL # 6.8 TH/MM3 (1.8-7.7); BASOPHIL % 0.4 % (0.0-2.0); EOSINOPHIL # 0.2 TH/MM3 (0-0.4); EOSINOPHIL % 1.9 % (0.0-4.0); HEMATOCRIT 36.6 % (35.0-46.0); HEMO FLAGS DIFF FINAL; LYMPH % 15.1 % (9.0-44.0); LYMPHOCYTE # 1.4 TH/MM3 (1.0-4.8); MEAN CORPUSCULAR HGB CONC 33.3 % (32.0-36.0); NEUT % 74.6 % (16.0-70.0); PLATELET COUNT 204 TH/MM3 (150-450); RED BLOOD COUNT 4.07 MIL/MM3 (4.00-5.30); RED CELL DISTRIBUTION WIDTH 13.8 % (11.6-17.2); WHITE BLOOD COUNT 9.1 TH/MM3 (4.0-11.0)
[2016-10-26 05:40] LABS: BICARBONATE 24.5 MEQ/L (21.0-32.0); POTASSIUM 3.5 MEQ/L (3.5-5.1)
[2016-10-26 05:43] LABS: TOTAL BILIRUBIN ADULT 5.3 MG/DL (0.2-1.0)
[2016-10-26] MEDS: LISINOPRIL 20 MG TAB PO SCH (08:39)
[2016-10-26] MEDS: METOPROLOL TARTRATE 25 MG TAB PO SCH ×2 (08:39→20:14)
[2016-10-26] MEDS: HYDROCHLOROTHIAZIDE 25 MG TAB PO SCH (08:39)
[2016-10-26] MEDS: HEPARIN SODIUM - SQ 10,000 UNITS/ML VIAL SQ SCH ×2 (08:40→20:10)
[2016-10-26] MEDS: SODIUM CHLORIDE 0.9% FLUSH 10 ML FLUSH IV FLUSH SCH ×2 (08:40→20:17)
[2016-10-26] MEDS: HYDROmorphone HCL PF 1 MG/ML VIAL IV PUSH PRN (08:41)
--- NOTE | 2016-10-26 10:11 | HHI.PR ---
Subjective Remarks Resting in the bed Family member present supportive care Abdomen less sore today Decreased appetite and encourage patient to try to eat Encouraged mobility and activity and up in chair (Serenity Cheung) Objective Objective Results - Vital Signs Date Time Temp Pulse Resp B/P Pulse Ox O2 Delivery O2 Flow Rate FiO2 10/26/16 08:45 93 21 10/26/16 08:04 97.5 80 20 142/82 93 10/26/16 04:00 98.2 82 20 138/66 93 10/26/16 00:00 97.7 81 20 138/66 93 10/25/16 20:09 96 10/25/16 20:00 97.6 79 20 149/71 97 10/25/16 16:00 96.0 75 17 135/62 95 10/25/16 13:50 70 16 95 Nasal Cannula 2 10/25/16 13:45 97.5 71 16 140/65 95 Nasal Cannula 2 10/25/16 13:30 73 16 136/68 96 Nasal Cannula 3 10/25/16 13:15 97.6 77 17 127/73 94 Nasal Cannula 3 10/25/16 12:00 97.7 75 16 126/58 90 10/25/16 11:39 97.7 75 16 126/58 90 I/O 10/25/16 10/25/16 10/25/16 10/26/16 10/26/16 10/26/16 07:00 15:00 23:00 07:00 15:00 23:00 Intake Total 1048 ml 862 ml 240 ml 1245 ml Balance 1048 ml 862 ml 240 ml 1245 ml Intake Oral 240 ml 0 ml IV Total 1048 ml 462 ml 1245 ml Other 400 ml # Voids 2 0 2 3 # Bowel Movements 0 2 (Serenity Cheung) Result Diagram: 10/26/16 0355 10/26/16 0355 ROS General: Fatigue, Weakness, Other (10 point ROS done positives noted) Pulmonary: SOB (mild exertional) GI: Abdominal Pain (improved) (Serenity Cheung) Physical Exam Physical Exam PHYSICAL EXAMINATION GENERAL: This is an obese elderly female who appears to be in no acute distress. She is alert and awake, generalized weakness HEAD: Normocephalic , atraumatic OROPHARYNGEAL: Oropharynx without erythema or edema. NECK: Supple. Trachea midline without deviation. CARDIAC: Regular rhythm, regular rate, S1 and S2 are heard. Distant heart sounds LUNGS: Clear to auscultation bilaterally. No acute wheezes or rhonchi ABDOMEN: Soft, obese, nontender, no organomegaly or masses. Bowel sounds are present EXTREMITIES: no edema. Pulses intact NEUROLOGICAL: Patient mood and affect appropriate. No focal deficit SKIN:Warm and moist Objective Remarks I'll try to eat some oatmeal, not very hungry (Serenity Cheung) A/P Assessment and Plan (1) Abdominal pain (2) Choledocholithiasis (3) DM (diabetes mellitus) (4) Leukocytosis (5) Hyperlipidemia (6) Elevated liver enzymes (7) Lactic acid acidosis (8) JAIRO (acute kidney injury) 86-year-old elderly female with history of cholecystectomy in 2010 and choledocholithiasis with ERCP and stone extraction in 2016. Admitted with cramping abdominal pain associated with nausea. Has elevated liver enzymes. 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 Positive for leukocytosis and lactic acidosis, SIRS. vitals reviewed, normal trends today labs reviewed, leukocytosis resolved ERCP with stenting on -, tolerated procedure fairly well according to patient Gastroenterology consulted. Appreciate input and we'll follow his course of treatment antibiotics, follow cultures, gio hydration Lactic acid resolved, 1.3 monitor bilirubin and other labs. Type 2 diabetes Accu-Cheks before meals and at bedtime with insulin therapy Hypertension, stable, medical management SCDs and heparin subcutaneous for DVT prophylaxis Increased mobility and activity today patient's to be up in chair, physical therapy eval and treat, appreciate any recommendations Encouraged nutrition Discharge planning soon, day or 2 (Serenity Cheung) Assessment and Plan patient seen and examined pain much better LFTS improving decreased appetite encourage eating anticipate discharge soon discussed with patient and family at bedside discussed with Serenity RECINOS labs in am (Mercedez Niño MD) Serenity Cheung Oct 26, 2016 10:11 Mercedez Niño MD Oct 26, 2016 17:11
--- NOTE | 2016-10-26 17:41 | HHI.GIFU ---
Subjective Remarks Pt resting comfortably, visiting with family, ordering dinner. NO pain, n/v. ( Vida Guy) Objective Vitals I&O Vital Signs Date Time Temp Pulse Resp B/P Pulse Ox O2 Delivery O2 Flow Rate FiO2 10/26/16 16:00 98.3 78 20 169/65 93 10/26/16 12:00 97.3 69 20 148/67 94 10/26/16 08:45 93 21 10/26/16 08:04 97.5 80 20 142/82 93 10/26/16 04:00 98.2 82 20 138/66 93 10/26/16 00:00 97.7 81 20 138/66 93 10/25/16 20:09 96 10/25/16 20:00 97.6 79 20 149/71 97 I/O 10/25/16 10/25/16 10/25/16 10/26/16 10/26/16 10/26/16 07:00 15:00 23:00 07:00 15:00 23:00 Intake Total 1048 ml 862 ml 240 ml 1245 ml 360 ml Balance 1048 ml 862 ml 240 ml 1245 ml 360 ml Intake Oral 240 ml 0 ml 360 ml IV Total 1048 ml 462 ml 1245 ml Other 400 ml # Voids 2 0 2 3 4 # Bowel Movements 0 2 0 Laboratory Laboratory Tests Test 10/26/16 03:55 White Blood Count 9.1 Red Blood Count 4.07 Hemoglobin 12.2 Hematocrit 36.6 Mean Corpuscular Volume 90.0 Mean Corpuscular Hemoglobin 30.0 Mean Corpuscular Hemoglobin 33.3 Concent Red Cell Distribution Width 13.8 Platelet Count 204 Mean Platelet Volume 9.5 Neutrophils (%) (Auto) 74.6 Lymphocytes (%) (Auto) 15.1 Monocytes (%) (Auto) 8.0 Eosinophils (%) (Auto) 1.9 Basophils (%) (Auto) 0.4 Neutrophils # (Auto) 6.8 Lymphocytes # (Auto) 1.4 Monocytes # (Auto) 0.7 Eosinophils # (Auto) 0.2 Basophils # (Auto) 0.0 CBC Comment DIFF FINAL Differential Comment Sodium Level 138 Potassium Level 3.5 Chloride Level 102 Carbon Dioxide Level 24.5 Anion Gap 12 Blood Urea Nitrogen 15 Creatinine 0.87 Estimat Glomerular Filtration 62 Rate Random Glucose 148 Calcium Level 8.5 Total Bilirubin 5.3 Direct Bilirubin 3.3 Indirect Bilirubin 2.0 Aspartate Amino Transf 73 (AST/SGOT) Alanine Aminotransferase 135 (ALT/SGPT) Alkaline Phosphatase 100 Total Protein 5.9 Albumin 2.7 Date/Time Procedure Status Source Growth 10/23/16 23:55 Aerobic Blood Culture - Preliminary Resulted Blood Peripheral NO GROWTH IN 2 DAYS 10/23/16 23:55 Anaerobic Blood Culture - Preliminary Resulted Blood Peripheral NO GROWTH IN 2 DAYS Imaging Last Impressions GI Procedure 10/25/16 0000 Signed Impressions: Service Date/Time: Tuesday, October 25, 2016 12:37 - CONCLUSION: ERCP as above. Delfino Roberts Jr., MD Chest X-Ray 10/23/162034 Signed Impressions: Service Date/Time: Sunday, October 23, 2016 21:09 - CONCLUSION: No evidence of acute cardiopulmonary disease. Wali Brown MD Abdomen/Pelvis CT 10/23/162031 Signed Impressions: Service Date/Time: Sunday, October 23, 2016 23:44 - CONCLUSION: The extra hepatic biliary tree is dilated status post cholecystectomy but there is very significant debris within the common bile duct worse than in May 2015. Kwesi Reyna MD Physical Exam HEENT: EOMI; normocephalic; atraumatic; CHEST: Chest is clear to auscultation and percussion. CARDIAC: Regular rate and rhythm with no murmur gallop or rubs. ABDOMEN: Soft, nondistended, nontender; no hepatosplenomegaly; bowel sounds are present in all four quadrants. EXTREMITIES: No clubbing, cyanosis, or edema. SKIN: Normal; no rash APPOINTMENT COORDINATOR: No focal deficits; alert and oriented times three. (Vida Guy [facility]) Assessment and Plan Plan ASSESSMENT - epigastric pain, nausea - hx choledocholithiasis. s/p ERCP with stent placement 10-25-16--> ERCP 10-25-16 --> ampulla revealed prior sphincterotomy but fibrotic opening, attempted stone extraction failed despite several attempts, stent placed. CT 10-23-16 --> the extra hepatic biliary tree is dilated status post cholecystectomy but there is very significant debris within the common bile duct worse than in May 2015 - elevated LFTs - likely 2/2 above PLAN - MELISSA - continue abx - ERCP in 8w - further recommendations to follow This pt seen by myself and DR Tafoya and this note is written on his behalf ( Vida Guy) Physician Comments Plan as above, stable from GI point of view, MELISSA and daily LFT's. (Paolo Tafoya MD) Vida Guy Oct 26, 2016 17:41 Paolo Tafoya MD Oct 26, 2016 23:57
[2016-10-27] VITALS (9 sets, daily range): BP systolic 137–190; BP diastolic 66–81; PULSE 65–93; RESP 17–20; TEMP 97.2–98.5; O2SAT 92–96
[2016-10-27] MEDS: metroNIDAZOLE 500 MG INJ 100 ML IV SCH ×3 (00:42→17:34)
[2016-10-27] MEDS: VANCOMYCIN INJ 1,000 MG in SODIUM CHLOR 0.9% 250 ML INJ 250 ML IV SCH ×2 (01:44→12:53)
[2016-10-27] MEDS: INSULIN ASPART SUPPLEMENTAL SCALE SQ SCH ×4 (06:00→21:00)
[2016-10-27] MEDS: AZTREONAM INJ 1,000 MG in SODIUM CHLORIDE 0.9% INJ 100 ML IV SCH ×2 (08:04→16:10)
[2016-10-27] MEDS: SODIUM CHLORIDE 0.9% FLUSH 10 ML FLUSH IV FLUSH SCH ×2 (09:00→21:00)
[2016-10-27] MEDS: HYDROCHLOROTHIAZIDE 25 MG TAB PO SCH (09:02)
[2016-10-27] MEDS: LISINOPRIL 20 MG TAB PO SCH (09:02)
[2016-10-27] MEDS: METOPROLOL TARTRATE 25 MG TAB PO SCH ×2 (09:03→21:01)
[2016-10-27] MEDS: HEPARIN SODIUM - SQ 10,000 UNITS/ML VIAL SQ SCH ×2 (09:03→21:01)
--- NOTE | 2016-10-27 10:05 | HHI.PR ---
Subjective Remarks Up in chair States decreased appetite and nausea continues, and vomiting last p.m. Family member present supportive care minimal soreness in the lower abdomen Tired and weak today (Serenity Cheung) Objective Objective Results - Vital Signs Date Time Temp Pulse Resp B/P Pulse Ox O2 Delivery O2 Flow Rate FiO2 10/27/16 08:00 98.5 88 18 168/72 92 10/27/16 05:30 93 159/70 10/27/16 04:00 98.2 88 17 187/80 94 10/27/16 00:00 98.3 69 18 137/66 94 10/26/16 22:00 70 10/26/16 20:00 97.0 74 18 184/80 96 10/26/16 16:00 98.3 78 20 169/65 93 10/26/16 12:00 97.3 69 20 148/67 94 I/O 10/26/16 10/26/16 10/26/16 10/27/16 10/27/16 10/27/16 07:00 15:00 23:00 07:00 15:00 23:00 Intake Total 1245 ml 1110 ml 868 ml 1024 ml Output Total 150 ml 250 ml Balance 1245 ml 1110 ml 718 ml 774 ml Intake Oral 0 ml 360 ml 240 ml 240 ml IV Total 1245 ml 750 ml 628 ml 784 ml Output Urine Total 150 ml 250 ml # Voids 3 4 2 # Bowel Movements 2 0 (Serenity Cheung) Result Diagram: 10/26/16 0355 10/26/16 0355 ROS General: Fatigue, Weakness HEENT: Other (anorexia) Pulmonary: Cough (occasional) GI: Abdominal Pain (lower abdomen), Diarrhea (stools are loose and soft), N/V ( Serenity Cheung) Physical Exam Physical Exam PHYSICAL EXAMINATION GENERAL: This is a elderly female Feels extremely tired and weak today She is awake, HEAD: Normocephalic , atraumatic OROPHARYNGEAL: Oropharynx clear NECK: Supple. Trachea midline without deviation. CARDIAC: Regular rhythm, regular rate, S1 and S2 are heard. LUNGS: Clear to auscultation bilaterally. ABDOMEN: Soft, round EXTREMITIES: trace edema. Pulses intact NEUROLOGICAL: Patient mood and affect appropriate, mild anxiety SKIN:Warm , dry, pale (Serenity Cheung) A/P Assessment and Plan (1) Abdominal pain (2) Choledocholithiasis (3) DM (diabetes mellitus) (4) Leukocytosis (5) Hyperlipidemia (6) Elevated liver enzymes (7) Lactic acid acidosis (8) JAIRO (acute kidney injury) vitals reviewed, normal trends today labs reviewed, leukocytosis resolved, no growth so far. Blood cultures ERCP with stenting on 10-25, continues to have nausea and anorexia. Emesis last night Gastroenterology consulted. Appreciate input and we'll follow his course of treatment antibiotics continue IV which could be assisting with her nausea, follow cultures, gio hydration We'll maintain on clear liquids for now and have GIs expert opinion to assist with her care monitor bilirubin and other labs. Type 2 diabetes Accu-Cheks before meals and at bedtime with insulin therapy Hypertension, stable, medical management SCDs and heparin subcutaneous for DVT prophylaxis Increased mobility and activity, patient is up in chair this a.m., stills feels very weak Encouraged nutrition, especially clear liquids for now Discharge planning soon, not ready yet Discussed with patient and her daughter Discussed with nurse Status with Dr. niño, seen on her behalf (Serenity Cheung) Assessment and Plan patient seen and examined no pain 3 loose BMs since am c diff pending switched back to CLD continue current care discussed with patient , nursing staff discussed with Serenity RECINOS (Mercedez Niño MD) Serenity Cheung Oct 27, 2016 10:05 Mercedez Niño MD Oct 27, 2016 16:04
[2016-10-27] MEDS: D5-1/2 NS + KCL 20 MEQ INJ 1,000 ML IV SCH ×2 (11:31→22:08)
--- NOTE | 2016-10-27 11:46 | HHI.GIFU ---
Subjective Remarks pt sitting up in chair. Says she vomited last night but no nausea or vomiting this morning. She did have 2 x episodes non bloody diarrhea after drinking chicken broth this morning. (Vida Guy) Objective Vitals I&O Vital Signs Date Time Temp Pulse Resp B/P Pulse Ox O2 Delivery O2 Flow Rate FiO2 10/27/16 08:00 98.5 88 18 168/72 92 10/27/16 05:30 93 159/70 10/27/16 04:00 98.2 88 17 187/80 94 10/27/16 00:00 98.3 69 18 137/66 94 10/26/16 22:00 70 10/26/16 20:00 97.0 74 18 184/80 96 10/26/16 16:00 98.3 78 20 169/65 93 10/26/16 12:00 97.3 69 20 148/67 94 I/O 10/26/16 10/26/16 10/26/16 10/27/16 10/27/16 10/27/16 07:00 15:00 23:00 07:00 15:00 23:00 Intake Total 1245 ml 1110 ml 868 ml 1024 ml Output Total 150 ml 250 ml Balance 1245 ml 1110 ml 718 ml 774 ml Intake Oral 0 ml 360 ml 240 ml 240 ml IV Total 1245 ml 750 ml 628 ml 784 ml Output Urine Total 150 ml 250 ml # Voids 3 4 2 # Bowel Movements 2 0 Laboratory Date/Time Procedure Status Source Growth 10/23/16 23:55 Aerobic Blood Culture - Preliminary Resulted Blood Peripheral NO GROWTH IN 3 DAYS 10/23/16 23:55 Anaerobic Blood Culture - Preliminary Resulted Blood Peripheral NO GROWTH IN 3 DAYS Physical Exam HEENT: EOMI; normocephalic; atraumatic; CHEST: Chest is clear to auscultation and percussion. CARDIAC: Regular rate and rhythm with no murmur gallop or rubs. ABDOMEN: Soft, nondistended, nontender; no hepatosplenomegaly; bowel sounds are present in all four quadrants. EXTREMITIES: No clubbing, cyanosis, or edema. SKIN: Normal; no rash SUPERVISOR PATCHING: No focal deficits; alert and oriented times three. (Vida Guy) Assessment and Plan Plan ASSESSMENT - epigastric pain, nausea - hx choledocholithiasis. s/p ERCP with stent placement 10-25-16--> ERCP 10-25-16 --> ampulla revealed prior sphincterotomy but fibrotic opening, attempted stone extraction failed despite several attempts, stent placed. CT 10-23-16 --> the extra hepatic biliary tree is dilated status post cholecystectomy but there is very significant debris within the common bile duct worse than in May 2015 - elevated LFTs - likely 2/2 above - diarrhea - 2 x non bloody episodes today. On clears. Will check c diff PLAN - clears - LFTs - check c diff - continue abx - ERCP in 8w - further recommendations to follow This pt seen by myself and DR Tafoya and this note is written on his behalf ( Vida Guy) Physician Comments Seen and examined with yuliet Mcpherson as above, will check LFT and CBC Will follow up with you. (Paolo Tafoya MD) Vida Guy Oct 27, 2016 11:46 Paolo Tafoya MD Oct 27, 2016 13:06
[2016-10-27] MEDS ORDERED: hydrALAZINE HCL 20 MG/ML VIAL IV PUSH PRN (18:00)
[2016-10-27] MEDS ORDERED: cloNIDine HCL 0.2 MG TAB PO PRN (19:00)
[2016-10-28] VITALS (9 sets, daily range): BP systolic 143–208; BP diastolic 67–82; PULSE 62–90; RESP 17–18; TEMP 97.1–98.2; O2SAT 95–97
[2016-10-28] MEDS: AZTREONAM INJ 1,000 MG in SODIUM CHLORIDE 0.9% INJ 100 ML IV SCH ×2 (00:06→08:30)
[2016-10-28] MEDS: metroNIDAZOLE 500 MG INJ 100 ML IV SCH ×2 (00:45→09:44)
[2016-10-28] MEDS: VANCOMYCIN INJ 1,000 MG in SODIUM CHLOR 0.9% 250 ML INJ 250 ML IV SCH ×2 (01:29→12:02)
[2016-10-28] MEDS: INSULIN ASPART SUPPLEMENTAL SCALE SQ SCH ×4 (06:02→21:00)
[2016-10-28 07:19] LABS: INDIRECT BILIRUBIN 1.6 MG/DL (0.0-0.8); TOTAL BILIRUBIN ADULT 2.4 MG/DL (0.2-1.0)
[2016-10-28] MEDS: LISINOPRIL 20 MG TAB PO SCH (08:28)
[2016-10-28] MEDS: HYDROCHLOROTHIAZIDE 25 MG TAB PO SCH (08:28)
[2016-10-28] MEDS: METOPROLOL TARTRATE 25 MG TAB PO SCH ×2 (08:28→21:40)
[2016-10-28] MEDS: HEPARIN SODIUM - SQ 10,000 UNITS/ML VIAL SQ SCH ×2 (08:29→21:40)
[2016-10-28] MEDS: SODIUM CHLORIDE 0.9% FLUSH 10 ML FLUSH IV FLUSH SCH ×2 (08:31→21:00)
--- NOTE | 2016-10-28 10:30 | HHI.PR ---
Subjective Remarks Up in chair, family in room Appetite is still decreased but patient is, try to eat some breakfast this morning Lower abdominal pain but gradual improvement Hypertension improved Afebrile (Serenity Cheung) Objective Objective Results - Vital Signs Date Time Temp Pulse Resp B/P Pulse Ox O2 Delivery O2 Flow Rate FiO2 10/28/16 08:00 97.3 66 17 168/72 97 10/28/16 04:00 97.2 88 17 167/71 97 10/28/16 00:00 98.2 78 17 143/67 97 10/27/16 22:00 85 10/27/16 20:00 97.2 92 17 175/75 92 10/27/16 18:35 190/81 10/27/16 16:00 97.3 74 20 181/78 95 10/27/16 12:00 98.0 65 20 186/81 96 I/O 10/27/16 10/27/16 10/27/16 10/28/16 10/28/16 10/28/16 07:00 15:00 23:00 07:00 15:00 23:00 Intake Total 1024 ml 825 ml 1753 ml 1121 ml Output Total 250 ml 300 ml Balance 774 ml 825 ml 1753 ml 821 ml Intake Oral 240 ml 300 ml 240 ml 240 ml IV Total 784 ml 525 ml 1513 ml 881 ml Output Urine Total 250 ml 300 ml # Voids 2 6 2 # Bowel Movements 2 1 (Serenity Cheung) Result Diagram: 10/26/16 0355 10/26/16 0355 ROS General: Fatigue, Weakness (gradual improvement), Other (10 point ROS done positives noted) GI: Abdominal Pain (lower), BM (active), N/V (gradual improvement, anorexia starting to improve) Neuro/MS: Other (mild anxiety over current condition) (Serenity Cheung) Physical Exam Physical Exam PHYSICAL EXAMINATION GENERAL: This is a obese elderly female who appears to be in mild distress. She is alert and awake, sitting up in chair HEAD: Normocephalic OROPHARYNGEAL: Oropharynx dry but clear NECK: Supple. Trachea midline without deviation. CARDIAC: Regular rhythm, regular rate, S1 and S2 LUNGS: Clear to auscultation bilaterally. No wheeze or rhonchi ABDOMEN: Soft, mild lower abdominal tenderness with some gradual improvement to light palpation, bowel sounds soft EXTREMITIES: No edema, moves extremities with purpose NEUROLOGICAL: Patient mood and affect appropriate. Mild anxiety SKIN:Warm, dry, mild paleness (Serenity Cheung) A/P Assessment and Plan (1) Abdominal pain (2) Choledocholithiasis (3) DM (diabetes mellitus) (4) Leukocytosis (5) Hyperlipidemia (6) Elevated liver enzymes (7) Lactic acid acidosis (8) JAIRO (acute kidney injury) vitals reviewed, normal trends today labs reviewed, leukocytosis resolved, no growth so far. Blood cultures negative , LFTs improving Will check BMP in the morning ERCP with stenting on -, mild nausea with gradual improvement no further emesis Patient is attempting to eat small amounts of food this morning. Still encouraging by mouth liquids Gastroenterology consulted. Appreciate input and we'll follow his course of treatment Continue IV fluids until patient is eating and drinking adequate amounts Marked improvement with LFTs today Clear liquids, but may increase diet as patient can tolerate Type 2 diabetes Accu-Cheks before meals and at bedtime with insulin therapy Hypertension, improved today, when necessary medicines for systolic 180 or greater, diastolic 100 or greater SCDs and heparin subcutaneous for DVT prophylaxis Increased mobility and activity, patient is up in chair this a.m., Encouraged nutrition, especially clear liquids for now Discharge planning soon, possible Sunday if patient is able to tolerate liquids and food. Appreciate GI input on discharge planning and when patient can follow -up as outpatient. Discussed with patient and her daughter Discussed with nurse Status with Dr. Law, seen on his behalf (Serenity Cheung) Assessment and Plan pt is seen & examined d/w PT & her daughter at bedside feels better No abd pain /no fever or chills appetite is ok No more diarrhea LFTs improving de escalate abx ambulate encourage po intake ss for d/c planning/possible d/c home in am, if remained stable (Sierra Law MD) Serenity Cheung Oct 28, 2016 10:30 Sierra Law MD Oct 28, 2016 12:40
[2016-10-28] MEDS: D5-1/2 NS + KCL 20 MEQ INJ 1,000 ML IV SCH (11:54)
--- NOTE | 2016-10-28 13:45 | HHI.GIFU ---
Subjective Remarks patient is sitting up in chair accompanied by daughter. She is doing good today , no abdomen pain, no nausea, no vomiting, no diarrhea. Tolerating clears okay (CharnakulPedro Luis GRISEL) Objective Vitals I&O Vital Signs Date Time Temp Pulse Resp B/P Pulse Ox O2 Delivery O2 Flow Rate FiO2 10/28/16 12:00 97.2 67 17 169/72 97 10/28/16 08:00 97.3 66 17 168/72 97 10/28/16 04:00 97.2 88 17 167/71 97 10/28/16 00:00 98.2 78 17 143/67 97 10/27/16 22:00 85 10/27/16 20:00 97.2 92 17 175/75 92 10/27/16 18:35 190/81 10/27/16 16:00 97.3 74 20 181/78 95 I/O 10/27/16 10/27/16 10/27/16 10/28/16 10/28/16 10/28/16 07:00 15:00 23:00 07:00 15:00 23:00 Intake Total 1024 ml 825 ml 1753 ml 1121 ml Output Total 250 ml 300 ml Balance 774 ml 825 ml 1753 ml 821 ml Intake Oral 240 ml 300 ml 240 ml 240 ml IV Total 784 ml 525 ml 1513 ml 881 ml Output Urine Total 250 ml 300 ml # Voids 2 6 2 # Bowel Movements 2 1 Laboratory Laboratory Tests Test 10/28/16 05:21 Total Bilirubin 2.4 Direct Bilirubin 0.8 Indirect Bilirubin 1.6 Aspartate Amino Transf 65 (AST/SGOT) Alanine Aminotransferase 92 (ALT/SGPT) Alkaline Phosphatase 100 Total Protein 5.4 Albumin 2.3 Date/Time Procedure Status Source Growth 10/23/16 23:55 Aerobic Blood Culture - Preliminary Resulted Blood Peripheral NO GROWTH IN 4 DAYS 10/23/16 23:55 Anaerobic Blood Culture - Preliminary Resulted Blood Peripheral NO GROWTH IN 4 DAYS Imaging Last Impressions GI Procedure 10/25/16 0000 Signed Impressions: Service Date/Time: Tuesday, October 25, 2016 12:37 - CONCLUSION: ERCP as above. Delfino Roberts Jr., MD Chest X-Ray 10/23/162034 Signed Impressions: Service Date/Time: Sunday, October 23, 2016 21:09 - CONCLUSION: No evidence of acute cardiopulmonary disease. Wali Brown MD Abdomen/Pelvis CT 10/23/162031 Signed Impressions: Service Date/Time: Sunday, October 23, 2016 23:44 - CONCLUSION: The extra hepatic biliary tree is dilated status post cholecystectomy but there is very significant debris within the common bile duct worse than in May 2015. Kwesi Reyna MD Physical Exam HEENT: EOMI; normocephalic; atraumatic; CHEST: Chest is clear to auscultation and percussion. CARDIAC: Regular rate and rhythm with no murmur gallop or rubs. ABDOMEN: Soft, nondistended, nontender; no hepatosplenomegaly; bowel sounds are present in all four quadrants. EXTREMITIES: No clubbing, cyanosis, or edema. SKIN: Normal; no rash DOCUMENT MANAGER: No focal deficits; alert and oriented times three. (Pedro Luis Zepeda) Assessment and Plan Plan ASSESSMENT - Choledocholithiasis. s/p ERCP with stent placement 10-25-16--> ERCP 10-25-16 -- > ampulla revealed prior sphincterotomy but fibrotic opening, attempted stone extraction failed despite several attempts, stent placed. CT 10-23-16 --> the extra hepatic biliary tree is dilated status post cholecystectomy but there is very significant debris within the common bile duct worse than in May 2015 - elevated LFTs - Trending down PLAN - Advance diet - LFTs in am - ERCP in 8 weeks - further recommendations to follow This pt seen by myself and DR Mcclain and this note is written on his behalf ( Pedro Luis Zepeda) Physician Comments Patient seen and examined Agree with above Continue with current supportive care Monitor labs Follow-up with GI post discharge ERCP in 8 weeks Not much to add at this point we will sign off (Mike Mcclain MD) Pedro Luis Zepeda Oct 28, 2016 13:45 Mike Mcclain MD Oct 28, 2016 16:17
[2016-10-28] MEDS: metroNIDAZOLE 500 MG TAB PO SCH ×2 (14:59→21:40)
[2016-10-28] MEDS: CEFUROXIME AXETIL 500 MG TAB PO SCH (21:40)
[2016-10-29] VITALS: BP 167/70; PULSE 65; RESP 18; TEMP 97.2; O2SAT 97
[2016-10-29] MEDS: D5-1/2 NS + KCL 20 MEQ INJ 1,000 ML IV SCH ×2 (00:48→14:08)
[2016-10-29 04:00] VITALS: BP 160/71; PULSE 73; RESP 18; TEMP 97.1; O2SAT 73
[2016-10-29 05:18] LABS: HEMATOCRIT 32.8 % (35.0-46.0); MEAN CORPUSCULAR HEMOGLOBIN 31.1 PG (27.0-34.0); MEAN CORPUSCULAR HGB CONC 35.3 % (32.0-36.0); PLATELET COUNT 288 TH/MM3 (150-450); RED BLOOD COUNT 3.73 MIL/MM3 (4.00-5.30); RED CELL DISTRIBUTION WIDTH 13.6 % (11.6-17.2); REVIEW FLAG FINAL; WHITE BLOOD COUNT 6.7 TH/MM3 (4.0-11.0)
[2016-10-29 05:43] LABS: TOTAL BILIRUBIN ADULT 1.6 MG/DL (0.2-1.0)
[2016-10-29] MEDS: metroNIDAZOLE 500 MG TAB PO SCH ×2 (06:02→15:30)
[2016-10-29] MEDS: INSULIN ASPART SUPPLEMENTAL SCALE SQ SCH ×2 (06:39→11:00)
[2016-10-29 06:52] LABS: BICARBONATE 23.9 MEQ/L (21.0-32.0)
[2016-10-29 07:15] LABS: POTASSIUM 3.2 MEQ/L (3.5-5.1)
[2016-10-29 08:00] VITALS: BP 182/78; PULSE 63; RESP 17; TEMP 97.7; O2SAT 97
[2016-10-29] MEDS: CEFUROXIME AXETIL 500 MG TAB PO SCH (08:29)
[2016-10-29] MEDS: LISINOPRIL 20 MG TAB PO SCH (08:29)
[2016-10-29] MEDS: HYDROCHLOROTHIAZIDE 25 MG TAB PO SCH (08:29)
[2016-10-29] MEDS: METOPROLOL TARTRATE 25 MG TAB PO SCH (08:29)
[2016-10-29] MEDS: HEPARIN SODIUM - SQ 10,000 UNITS/ML VIAL SQ SCH (08:30)
[2016-10-29] MEDS: SODIUM CHLORIDE 0.9% FLUSH 10 ML FLUSH IV FLUSH SCH (08:30)
[2016-10-29 12:00] VITALS: BP 176/73; PULSE 65; RESP 17; TEMP 97.7; O2SAT 96
--- NOTE | 2016-10-29 15:03 | HHI.PR ---
Subjective History of Present Illness feels well/eager to go home no N/V NO ABD PAIN No fever or chills Good appetite No Diarrhea ambulating in the room offers no other c/o daughter is at bedside Vitals/Results Intake & Output 10/28/16 10/28/16 10/29/16 15:00 23:00 07:00 Intake Total 240 ml 360 ml 240 ml Balance 240 ml 360 ml 240 ml Intake Oral 240 ml 360 ml 240 ml IV Total 0 ml 0 ml # Voids 3 2 1 # Bowel Movements 1 0 0 Vital Signs Vital Signs Date Time Temp Pulse Resp B/P Pulse Ox O2 Delivery O2 Flow Rate FiO2 10/29/16 12:00 97.7 65 17 176/73 96 10/29/16 08:00 97.7 63 17 182/78 97 10/29/16 04:00 97.1 73 18 160/71 73 10/29/16 00:00 97.2 65 18 167/70 97 10/28/16 21:40 90 10/28/16 20:00 97.1 62 18 183/73 95 10/28/16 17:57 152/69 10/28/16 16:37 190/77 10/28/16 16:00 97.6 73 17 208/82 97 CBC/BMP: 10/29/16 0415 10/29/16 0415 Lab Results Laboratory Tests Test 10/29/16 04:15 White Blood Count 6.7 TH/MM3 Red Blood Count 3.73 MIL/MM3 Hemoglobin 11.6 GM/DL Hematocrit 32.8 % Mean Corpuscular Volume 88.0 FL Mean Corpuscular Hemoglobin 31.1 PG Mean Corpuscular Hemoglobin 35.3 % Concent Red Cell Distribution Width 13.6 % Platelet Count 288 TH/MM3 Mean Platelet Volume 9.6 FL Sodium Level 138 MEQ/L Potassium Level 3.2 MEQ/L Chloride Level 102 MEQ/L Carbon Dioxide Level 23.9 MEQ/L Anion Gap 12 MEQ/L Blood Urea Nitrogen 9 MG/DL Creatinine 0.69 MG/DL Estimat Glomerular Filtration 81 ML/MIN Rate Random Glucose 120 MG/DL Calcium Level 8.2 MG/DL Total Bilirubin 1.6 MG/DL Direct Bilirubin 0.6 MG/DL Indirect Bilirubin 1.0 MG/DL Aspartate Amino Transf 65 U/L (AST/SGOT) Alanine Aminotransferase 90 U/L (ALT/SGPT) Alkaline Phosphatase 107 U/L Total Protein 5.4 GM/DL Albumin 2.4 GM/DL Physical Exam General General Appearance: Well Nourished, No Acute Distress, Comfortable, Obese Eyes Eye Exam: Pupils Equal, Sclera White, Extraocular Movement Intact Ears & Nose Ears & Nose Exam: Nasal Mucosa [place] Throat Throat Exam: Oral Mucosa [place] & Moist Neck Neck Exam: Neck Supple, Trachea Midline Pulmonary Resp Exam: Clear Bilaterally, Breath Sounds Equal Cardiology CV Exam: Regular, Normal Sinus Rhythm Gastrointestinal/Abdomen GI Exam: Soft, Non-Tender, Bowel Sounds Present Integumentary Skin Exam: Warm, Dry Extremeties Extremities Exam: No Edema, Pedal Pulses Palpable Neurologic Neuro Exam: Alert, Awake, Oriented, Speech Clear, Moving All Extremities VTE Prophylaxis VTE Prophylaxis Device: SCDs Assessment/Plan Assessment/Plan (1) Abdominal pain resolved (2) Acute Recurrent Choledocholithiasis (3) possible cholangitis (4) DM (diabetes mellitus) (5) Hyperlipidemia (6) Elevated liver enzymes (7) Lactic acid acidosis (8) JAIRO (acute kidney injury) blood c/s neg pt is afebrile , complete abx [address] 10-23-16 --> the extra hepatic biliary tree is dilated status post cholecystectomy but there is very significant debris within the common bile duct worse than in May 2015 s/p ERCP with stenting on 10-25, ERCP 10-25-16 --> ampulla revealed prior sphincterotomy but fibrotic opening, attempted stone extraction failed despite several attempts, stent placed. LFTs improved /symptoms resolved diabetic diet Type 2 diabetes Insulin Accu-Cheks before meals and at bedtime with insulin therapy BP control , BB/FATIMAH-I cont current tx cleared by GI for d/c dc home today see [facility] see Orders f/u pcp f/u GI dw PT & her daughter at bedside Sierra Law MD Oct 29, 2016 15:03
[2016-10-29] MEDS ORDERED: CEFU1TAB20 PO (15:15)
[2016-10-29] MEDS ORDERED: METR-1 PO (15:15)
--- NOTE | 2016-10-30 16:43 | HHI.DS ---
Discharge Summary Admission Date Oct 24, 2016 at 00:48 Discharge Date: Oct 29, 2016 Admitting Diagnosis Choledocholithiaisis (1) Abdominal pain (2) Choledocholithiasis (3) DM (diabetes mellitus) (4) Leukocytosis (5) Hyperlipidemia (6) Elevated liver enzymes (7) Lactic acid acidosis (8) JAIRO (acute kidney injury) Procedures s/p ERCP with stenting on 10-25, ERCP 10-25-16 --> ampulla revealed prior sphincterotomy but fibrotic opening, attempted stone extraction failed despite several attempts, stent placed. CBC/BMP: 10/29/16 0415 10/29/16 0415 Significant Findings Laboratory Tests Test 10/28/16 10/29/16 05:21 04:15 Total Bilirubin 2.4 MG/DL 1.6 MG/DL (0.2-1.0) (0.2-1.0) Direct Bilirubin 0.8 MG/DL 0.6 MG/DL (0.0-0.2) (0.0-0.2) Indirect Bilirubin 1.6 MG/DL 1.0 MG/DL (0.0-0.8) (0.0-0.8) Aspartate Amino Transf 65 U/L (15-37) 65 U/L (15-37) (AST/SGOT) Alanine Aminotransferase 92 U/L (10-53) 90 U/L (10-53) (ALT/SGPT) Total Protein 5.4 GM/DL 5.4 GM/DL (6.4-8.2) (6.4-8.2) Albumin 2.3 GM/DL 2.4 GM/DL (3.4-5.0) (3.4-5.0) Red Blood Count 3.73 MIL/MM3 (4.00-5.30) Hematocrit 32.8 % (35.0-46.0) Potassium Level 3.2 MEQ/L (3.5-5.1) Estimat Glomerular Filtration 81 ML/MIN (>89) Rate Random Glucose 120 MG/DL (74-106) Calcium Level 8.2 MG/DL (8.5-10.1) Imaging Last Impressions GI Procedure 10/25/16 0000 Signed Impressions: Service Date/Time: Tuesday, October 25, 2016 12:37 - CONCLUSION: ERCP as above. Delfino Roberts Jr., MD Chest X-Ray 10/23/162034 Signed Impressions: Service Date/Time: Sunday, October 23, 2016 21:09 - CONCLUSION: No evidence of acute cardiopulmonary disease. Wali Brown MD Abdomen/Pelvis CT 10/23/162031 Signed Impressions: Service Date/Time: Sunday, October 23, 2016 23:44 - CONCLUSION: The extra hepatic biliary tree is dilated status post cholecystectomy but there is very significant debris within the common bile duct worse than in May 2015. Kwesi Reyna MD Hospital Course This is a pleasant 86-year-old elderly white female with significant past medical history of cholecystectomy in 2010, type 2 diabetes, hypertension. Patient presented to the emergency room with sudden onset of abdominal pain that started around 2 PM yesterday. Indicates the pain is cramping in nature, it is across the top of the abdomen, it comes and goes. Associated with nausea , no vomiting. 2 hours before she had had lunch, 1/2 an apple and half turkey & salami sandwich. Patient has a history of choledocholithiasis that required ERCP and stone removal in 2015. She denies any fever, no chills. No urinary symptoms. Bowel movements have been regular, no blood. No other symptoms such as chest pain, shortness of breath. Patient was evaluated in emergency room, CBC remarkable for leukocytosis, WBC 15.7. Lactic acid was elevated at 3, it is trending down. BMP remarkable for BUN of 20, creatinine 1.12. Elevated liver enzymes, AST 346, ALT 278. Mild hyponatremia, sodium 135. Urinalysis with small amount of leukocyte esterase, no culture indicated. Abdomen and pelvis CT significant for extrahepatic biliary tree dilation status post cholecystectomy, there is significant degree within the common bile duct worse than in May 2015. Patient was noted tachycardic, blood pressure stable. No fever. Cultures were obtained, patient was started on empiric antibiotics. Patient was made NPO and GI consulted. Patient was admitted for further evaluation and treatment for: (1) Abdominal pain resolved (2) Acute Recurrent Choledocholithiasis (3) possible cholangitis (4) DM (diabetes mellitus) (5) Hyperlipidemia (6) Elevated liver enzymes (7) Lactic acid acidosis (8) JAIRO (acute kidney injury) During the course of the hospitalization, the following took place: Patient was put on IV fluids, continued on antibiotics. Blood cultures were follow, they remain negative. CT 10-23-16 --> the extra hepatic biliary tree is dilated status post cholecystectomy but there is very significant debris within the common bile duct worse than in May 2015 Gastroenterology was consulted. ERCP recommended. s/p ERCP with stenting on 10-25, ERCP 10-25-16 --> ampulla revealed prior sphincterotomy but fibrotic opening, attempted stone extraction failed despite several attempts, stent placed. LFTs improved /symptoms resolved Advanced to diabetic diet Type 2 diabetes put on accuchecks and ISS BP control , BB/FATIMAH-I cleared by GI for d/c pt was afebrile, needed to complete abx 10 day course after discharge Discharged home in stable condition Instructed to f/u with PCP and GI Pt Condition on Discharge: Stable Discharge Disposition: Discharge Home Discharge Instructions DIET: Follow Instructions for: Diabetic Diet, Low Fat Diet Fluid Restrictions: none Activities you can perform: Weight Bearing as Suly Follow up Referrals: Gastroenterology - 3 Weeks PCP Follow-up - 1 Week New Medications: Cefuroxime (Cefuroxime) 500 Mg Tab 500 MG PO Q12HR infection #8 TAB Metronidazole (Flagyl) 500 Mg Tab 500 MG PO Q8HR cholangitis #12 TAB Continued Medications: Lisinopril-Hctz (Zestoretic) 20-25 Mg Tab 1 TAB PO DAILY Blood Pressure Management #30 Ref 0 TAB Lovastatin (Lovastatin) 20 Mg Tab 20 MG PO HS Cholesterol Management #30 Ref 0 TAB Metformin (Metformin) 500 Mg Tab 500 MG PO BIDPC With meals Blood Sugar Management #60 Ref 0 TAB Metoprolol Tartrate (Metoprolol Tartrate) 25 Mg Tab 25 MG PO BID #60 Ref 0 TAB Multiple Vitamins W/ Minerals (Womens Daily Formula) 1 Tab Tab 1 TAB PO AC DINNER ([Calcium 600 +Iron]) 1 TAB PO DAILY Kimberlyn Benitez Oct 30, 2016 16:43
== END 2016-10-29 17:09 | disposition home or self-care (01) | DRG 445 ==
LOC: NEPC 19:23 → NEDA 10-24 00:48 → N07A 10-24 04:02
PROVIDERS: ADMIT Internal Medicine; ATTEND Internal Medicine
PROC: 0F798DZ Dilation of Common Bile Duct with Intraluminal Device, Via Natural or Artificial Opening Endoscopic (ICD-10-PCS; principal; 2016-10-25 12:09)
DX: K80.50 Calculus of bile duct without cholangitis or cholecystitis without obstruction (principal); N17.9 Acute kidney failure, unspecified; E87.2 Acidosis; R63.0 Anorexia; E87.1 Hypo-osmolality and hyponatremia; R65.10 Systemic inflammatory response syndrome (SIRS) of non-infectious origin without acute organ dysfunction; E11.9 Type 2 diabetes mellitus without complications; I10 Essential (primary) hypertension; E78.00 Pure hypercholesterolemia, unspecified; M19.90 Unspecified osteoarthritis, unspecified site; Z88.0 Allergy status to penicillin; Z88.2 Allergy status to sulfonamides; H91.90 Unspecified hearing loss, unspecified ear; M81.0 Age-related osteoporosis without current pathological fracture; Z96.641 Presence of right artificial hip joint; Z90.49 Acquired absence of other specified parts of digestive tract; R74.8 Abnormal levels of other serum enzymes; E78.5 Hyperlipidemia, unspecified; D72.829 Elevated white blood cell count, unspecified
CPT/HCPCS: 71010; 74177; 74330; 76937; 80048; 80053; 80076; 81001; 82948; 83605; 83690; 85025; 85027; 85610; 85730; 87040; 93005; 96365; 96366; 96375; C1769; C2625; J0360; J1170; J1644; J1815; J2270; J2405; J3370; J3480; J7040; J7050; Q9967

== ENCOUNTER → 2017-04-04 | Outpatient (CLI) | payer MEDICARE ==
[~2017-04-04] VITALS: Ht 162.6 cm; Wt 78.2 kg
[~2017-04-04] MED LIST changes: -CALC600T44 PO; +CALCTAB33 PO; +CHLORHEXIDINE GLUCONATE 2 % 1 PACK (2 CLOTHS) TOPICAL PRN; +INSULIN HUMAN REGULAR 1,000 UNITS/10 ML VIAL SQ PRN; +LACTATED RINGER'S 1000 ML IV PRN; +LISI-587 PO; -LISI10TA PO; -LOVA1TAB47 PO; +LOVA20TA PO; +METF500T PO; +METO25TA3 PO; +METOPROLOL TARTRATE 25 MG TAB PO PRN; +POVIDONE IODINE 5% (ANTISEPSIS KIT) 4 APPLICATIONS EACH NARE PRN; +SODIUM CHLORID 0.9% 500 ML IV PRN; +WOMETAB2 PO
--- NOTE | 2017-04-04 11:38 | PD.PROCEDR ---
GI Procedure PROCEDURE PERFORMED ERCP with stent removal and balloon extraction INDICATION FOR PROCEDURE Choledocholithiasis PROCEDURE: The procedure, risks and benefits were discussed with Ms. Sam and informed consent was obtained. Anesthesia sedated her with Diprivan. She was placed in the left lateral decubitus position. ERCP: Patient was placed in a prone position. The Pentax videoscope was introduced through the oropharynx and advanced to the second portion of the duodenum where the ampula was identified. FINDINGS: The scope was positioned in the second portion of the duodenum the stent was noted to be protruding from the common bile duct this was removed using a snare the scope was then repositioned the ampulla appeared to be unremarkable but had the evidence of a prior sphincterotomy we were able to obtain easy cannulation of the common bile duct that was dilated and filled with filling defects the intrahepatics were normal the gallbladder was not seen Using a 15 mm balloon we were able to do 3 sweeps we were able to remove all the filling defects and obstructive cholangiogram was performed and showed no further filling defects we were able to pass the balloon with ease through the ampulla At this point the procedure was terminated ESTIMATED BLOOD LOSS: None SPECIMENS REMOVED: None COMPLICATIONS: None IMPRESSION: Choledocholithiasis PLAN: Follow-up in clinic in 3-4 weeks CBC with LFTs prior office visit Mike Mcclain MD Apr 04, 2017 11:38
[2017-04-04 11:40] VITALS: BP 161/68; PULSE 76; RESP 20; TEMP 97.7; O2SAT 99
--- NOTE | 2017-04-04 14:26 | RADRPT ---
EXAM DATE/TIME: 04/04/2017 11:31 [facility] COMPARISON: GI LAB ERCP, October 25, 2016, 12:37. INDICATIONS : Stent removal, stone removal, balloon dilitation. FLUORO TIME: .44 minutes IMAGE COUNT: 5 CONTRAST: Instilled by Ordering Physician MEDICAL HISTORY : None. SURGICAL HISTORY : None. ENCOUNTER: Initial ACUITY: 1 day PAIN SCORE: Non-responsive. LOCATION: Abdomen FINDINGS: An ERCP was performed by the ordering physician. 5 images show contrast opacifying a dilated common bile duct. The intrahepatic biliary system is less well-seen due to the projections but appears normal in caliber. No filling defects appreciated. A Fo garty balloon is seen on the 2 of the images. CONCLUSION: ERCP as above. Delfino Roberts Jr., MD on April 04, 2017 at 14:24 Board Certified Radiologist. This report was verified electronically.
== END ==
LOC: HEND 08:33
PROVIDERS: ATTEND Internal Medicine Gastroenterology
DX: K80.50 Calculus of bile duct without cholangitis or cholecystitis without obstruction (principal); I10 Essential (primary) hypertension; E11.9 Type 2 diabetes mellitus without complications; Z79.84 Long term (current) use of oral hypoglycemic drugs
CPT/HCPCS: 00740; 43264; 43275; 74330; C1769; J7120